=== PATIENT | male | born 1985 | race Caucasian/White ===

== ENCOUNTER 2023-11-11 11:51 | Inpatient (IN) ==
--- NOTE | 2023-11-11 12:29 | Emergency Department Note ---
Impression & Plan Anxiety, Alcohol abuse, Alcohol withdrawal ED Provider Note ED Provider Note NAME: GENO AUSTIN AGE:38 SEX: Male : 1985 ARRIVES VIA: private vehicle INFORMANT: Patient ED PROVIDER(s): Lisa Arriola DO CHIEF COMPLAINT: Mental health evaluation HPI: This is a 38-year-old male presents emergency department for mental health evaluation. Patient admits to history of anxiety for which he is medicated and does follow with a therapist although he is currently between therapist and starts with a new one on Thursday. No recent change in medications. Patient states in the last 2 to 3 weeks since the holidays which she felt were stressful he has been using alcohol daily. He estimates 750 mL to 1 L of wine daily. He denies drinking to the point of blacking out, denies any injuries while intoxicated, denies any withdrawal symptoms. He states he does have a prior history of alcohol abuse. He denies any recent substance abuse. PAST MEDICAL HISTORY:See Below PAST SURGICAL HISTORY:See Below FAMILY HISTORY:See Below SOCIAL HISTORY:See Below HOME MEDICATIONS:See Below ALLERGIES:See Below VITALS:See Below PHYSICAL EXAMINATION: GENERAL: alert, well appearing, well nourished, no distress, non-toxic EYE EXAM: normal conjunctiva, PERRL and EOM's grossly intact OROPHARYNX: no exudate, no erythema, lips, buccal mucosa, and tongue normal and mucous membranes are moist NECK: supple, no nuchal rigidity, no adenopathy, non-tender LUNGS: Clear to auscultation. Normal chest wall mechanics, no w/r/r HEART: no murmurs, S1 normal and S2 normal ABDOMEN: abdomen soft, non-tender, normo-active bowel sounds, no masses, no rebound or guarding. BACK: Back is symmetrical on inspection and there is no deformity, no midline tenderness, no CVA tenderness. SKIN: no rashes, petechiae, orbruising UPPER EXTREMITIES: upper extremities are grossly normal. FROM, nml pulses b/l. LOWER EXTREMITIES: No pitting edema. FROM, nml pulses b/l. NEURO EXAM: Normal sensorium, cranial nerves II-XII grossly intact, normal speech, no facial droop,nogross weakness of arms, no gross weakness of legs. Gross sensation intact. No ataxia. Vital Signs: reviewed and remarkable Differential Diagnosis: mood disorder, suicidal ideation, anxiety, depression, substance abuse, toxidrome, infection, hypoglycemia, electrolyte abnormalities, ICH as well as others were considered. MEDICAL DECISION MAKING: This is a 38 yo male who presents with increased anxiety and alcohol abuse. VS stable. Protocol labs and imaging obtained and were reassuring. Patient found to have significant etoh elevation despite clinical appearance of sobriety. He was monitored and once sober was evaluated by case mgmt. He was in agreement with inpatient mental health treatment however due to concern for acutely evolving etoh withdrawal, case managers recommended medical admission and psych consult. Patient began having diaphoresis, slight tremors, and reporting nausea. He was tolerating po. IV established, EKG performed and interpreted by me, and he was started on IV banana bag and given IV valium. Case discussed with hospitalist for additional evaluation and mgmt. Consultation(s): 2039: Discussed with Dr. Dejesus, [place] hospitalist, for additional evaluation and medical mgmt and patient unable to be placed directly into mental health facility per case managers due to concern for evolving etoh withdrawal symptoms and hx of alcohol withdrawal related seizure. ER Treatment Provided: See below Diagnostics Interpreted By Me: -ECG: NSR at 97, nml axis, nml intervals, no acute ST/T wave changes -Cardiac Monitoring: An order was placed for continuous cardiac monitoring. The monitor shows a rate of 109 with sinus tachycardia rhythm. -Laboratory studies: As stated above and show below. -Imaging studies: [] Triage Nursing Note Reviewed Prior/Outside Records Reviewed Past Med/Surg History Social History Smoking Status: Current some day smoker Tobacco Type: E-cigarettes / Vaping Second Hand Exposure: No; Do You Dip or Chew Tobacco: No; Tobacco Cessation Education Requested by Patient: No Hx Alcohol Use: Yes Alcohol type: wine Hx Substance Use: Yes Last Used Substance: Unknown Substance Use Type Other:: occasional Preferred Language: Swedish Communication Ability: Effective Residential Sales Executive Required: No Beliefs That Will Affect Care: None Current Living Situation: Significant Other Feels Safe at Home: Yes Safety Concerns: Feels Safe At This Time Gender Identity: Male Assistive Devices Comment: reading glasses sometimes Allergies Allergies Allergy/AdvReac Type Severity Reaction Status Date / Time Sulfa (Sulfonamide Allergy Mild Rash Verified 11/11/23 12:52 Antibiotics) Home Meds Home Medications Medication Instructions Recorded Confirmed duloxetine 30 mg PO QAM 11/11/23 11/11/23 hydroxyzine pamoate 50 mg PO QPM 11/11/23 11/11/23 prazosin 2 mg PO QPM 11/11/23 11/11/23 propranolol 10 mg PO BID PRN Anxiety 11/11/23 11/11/23 Results & Data (ED) Vital Signs Vital Signs - 24 hr 11/11/23 12:00 11/11/23 13:26 11/11/23 17:55 Temperature 36.3 C L 37.1 C Temperature Source Temporal Artery Scan Oral Pulse Rate 124 H Pulse Rate [Apical] 101 H 98 H Respiratory Rate 18 17 18 Respiratory Effort / Characteristics Non-Labored Respiratory Depth Normal Respiratory Pattern Blood Pressure 122/79 Blood Pressure [Right Arm] 116/81 131/92 Blood Pressure Mean 93 Blood Pressure Mean [Right Arm] 92 105 Pulse Oximetry 99 97 96 Oxygen Delivery Method Room Air Room Air Room Air Sepsis New/Unexplained Change in Mental Status No Sepsis Action Taken by Nursing No Action Required 11/11/23 19:56 11/11/23 21:06 Temperature 36.8 C Temperature Source Oral Pulse Rate Pulse Rate [Apical] 97 H 91 H Respiratory Rate 22 16 Respiratory Effort / Characteristics Non-Labored Spontaneous Non-Labored Spontaneous Respiratory Depth Normal Normal Respiratory Pattern Regular Regular Blood Pressure Blood Pressure [Right Arm] 134/100 132/86 Blood Pressure Mean Blood Pressure Mean [Right Arm] 111 101 Pulse Oximetry 97 96 Oxygen Delivery Method Room Air Sepsis New/Unexplained Change in Mental Status Sepsis Action Taken by Nursing Laboratory Data 11/12/23 07:54 11/12/23 07:54 Lab Results 11/11/23 Range/Units 12:20 WBC 5.64 (4.8-10.8) K/ul RBC 5.05 (4.70-6.10) M/uL Hgb 16.9 (14.0-18.0) g/dl Hct 47.6 (42.0-52.0) % MCV 94.3 (80.0-100.0) fL MCH 33.5 (25.0-34.0) pg MCHC 35.5 (32.0-36.0) g/dL RDW Std Deviation 42.7 (36.4-46.3) fL RDW Coeff of [place] 12.4 (11.5-14.5) % Plt Count 285 (130-400) K/uL MPV 9.7 (9.4-12.4) fL Immature Gran % (Auto) 0.4 % Neut % (Auto) 65.8 % Lymph % (Auto) 22.3 % [place] % (Auto) 9.4 % Eos % (Auto) 0.5 % Baso % (Auto) 1.6 % Neut # (Auto) 3.71 (1.40-6.50) K/uL Lymph # (Auto) 1.26 (1.20-3.40) K/uL [place] # (Auto) 0.53 (0.11-0.59) K/uL Eos # (Auto) 0.03 (0.00-0.50) K/uL Baso # (Auto) 0.09 (0.00-0.20) K/uL Immature Gran # (Auto) 0.02 (0.01-0.20) K/uL Sodium 140 (136-145) mmol/L Potassium 3.8 (3.5-5.1) mmol/L Chloride 100 (98-107) mmol/L Carbon Dioxide 30 (21-32) mmol/L Anion Gap 10 (3-11) BUN 9 (6-23) mg/dl Creatinine 0.88 (0.6-1.4) mg/dl Est Cr Clr Drug Dosing 105.4 ml/min Est GFR ( Amer) 125.4 ml/min Est GFR (Non-Af Amer) 108.2 ml/min BUN/Creatinine Ratio 10.2 (10-20) Glucose 146 H (70-99(Fasting)) mg/dl Calcium 9.1 (8.6-10.3) mg/dl Magnesium 2.0 (1.7-2.4) mg/dl Total Bilirubin 0.6 (0.2-1.0) mg/dl AST 41 H (13-39) U/L ALT 30 (7-52) U/L Alkaline Phosphatase 113 H (34-104) U/L Total Protein 8.7 H (6.0-8.3) gm/dl Albumin 4.9 (3.4-5.0) gm/dl Globulin 3.8 (2.5-4.0) gm/dl Albumin/Globulin Ratio 1.3 (0.9-2) TSH 2.876 (0.300-4.500) uIu/ml Urine Color Yellow Urine Appearance Clear (Clear) Urine pH 5.5 (4.5-7.5) Ur Specific [place] 1.013 (1.000-1.030) Urine Protein Negative (Negative) Urine Glucose (UA) Negative (Negative) Urine Ketones Trace H (Negative) Urine Blood Negative (Negative) Urine Nitrite Negative (Negative) Urine Bilirubin Negative (Negative) Urine Urobilinogen Negative (Negative) Ur Leukocyte Esterase Negative (Negative) Salicylates < 3.0 L (3.0-30) mg/dl Urine Opiates Screen Neg (Neg) Ur Methadone, Qual Neg (Neg) Acetaminophen < 3 L (10-30) ug/ml Urine Barbiturates Neg (Neg) Ur Phencyclidine (PCP) Neg (Neg) U Amphetamin/Meth Scrn Neg (Neg) MDMA (Ecstasy) Screen Neg (Neg) U Benzodiazepines Scrn Neg (Neg) Ur Cocaine Metabolite Neg (Neg) U Marijuana (THC) Screen Neg (Neg) Ethyl Alcohol mg/dL 241.4 H (<10.0) mg/dl Administered Medications Duloxetine HCl (Duloxetine Hcl 30 Mg Cap) 30 mg PO [facility] Stop: 12/12/23 08:59 Last Admin: 11/12/23 09:03 Dose: 30 mg Documented By: BERENICE Folic Acid (Folic Acid 1 Mg Tab) [facility] [place] Stop: 12/12/23 08:59 Last Admin: 11/12/23 09:03 Dose: 1 mg Documented By: BERENICE Lorazepam 1 mg/ Syringe 1 mls @ 2 mls/min IV UD PRN; Protocol PRN Reason: EtOH Withdrawal AWSS Score 6,7 Stop: 12/11/23 21:37 Last Admin: 11/12/23 11:26 Dose: 2 mls/min Documented By: MARYANN Multivitamins (Multivitamin Tab) 1 tab PO [facility] Stop: 12/12/23 08:59 Last Admin: 11/12/23 09:00 Dose: 1 tab Documented By: BERENICE Propranolol HCl (Propranolol Hcl 10 Mg Tab) 10 mg PO BID [facility] Stop: 12/12/23 08:59 Last Admin: 11/12/23 09:00 Dose: 10 mg Documented By: BERENICE Thiamine HCl (Thiamine Hcl 100 Mg Tab) 200 mg PO BID [facility] Stop: 12/12/23 08:59 Last Admin: 11/12/23 09:03 Dose: 200 mg Documented By: BERENICE Discontinued Medications Diazepam (Diazepam 5 Mg/Ml 10ml Vial) 5 mg IV NOW STA Stop: 11/11/23 20:26 Last Admin: 11/11/23 20:57 Dose: 5 mg Documented By: MED Multivitamins 10 ml/ Thiamine HCl 100 mg/ Folic Acid 1 mg/Sodium Chloride 1,011.2 mls @ 250 mls/hr IV .Q4H3M ONE Stop: 11/12/23 00:27 Last Infusion: 11/12/23 01:46 Dose: Infused Documented By: Admin: 11/11/23 21:34 Dose: 250 mls/hr Documented By: AAW Discharge Plan Visit Data Chief Complaint: Mental Health Evaluation Stated Complaint: MENTAL HEALTH ED Provider: Lisa Arriola Discharge Problem: Anxiety, Alcohol abuse, Alcohol withdrawal Patient Disposition: Being Evaluated by Hospitalist Discharge Instructions Interventions: ED Discharge Assessment Last Done: 11/11/23 23:46
[2023-11-11 12:56] LABS: Basophils # (auto) 0.09 K/uL (0.00-0.20); Basophils % (auto) 1.6 %; Eosinophils # (auto) 0.03 K/uL (0.00-0.50); Eosinophils % (auto) 0.5 %; Hematocrit (blood only) 47.6 % (42.0-52.0); Hemoglobin 16.9 g/dl (14.0-18.0); Immature Granulocytes # (auto) 0.02 K/uL (0.01-0.20); Immature Granulocytes % (auto) 0.4 %; Lymphocytes # (auto) 1.26 K/uL (1.20-3.40); Lymphocytes % (auto) 22.3 %; Mean Corpuscular Hemoglobin 33.5 pg (25.0-34.0); Mean Corpuscular Hgb Conc 35.5 g/dL (32.0-36.0); Mean Corpuscular Volume 94.3 fL (80.0-100.0); Mean Platelet Volume 9.7 fL (9.4-12.4); Monocytes # (auto) 0.53 K/uL (0.11-0.59); Monocytes % (auto) 9.4 %; Neutrophils # (auto) 3.71 K/uL (1.40-6.50); Neutrophils % (auto) 65.8 %; Platelet Count 285 K/uL (130-400); RDW Coefficient of Variation 12.4 % (11.5-14.5); RDW Standard Deviation 42.7 fL (36.4-46.3); Red Blood Count 5.05 M/uL (4.70-6.10); White Blood Count 5.64 K/ul (4.8-10.8)
[2023-11-11 13:04] LABS: Amphetamines+Metham, Urine Neg (Neg); Appearance Urine Clear (Clear); Barbiturates, Urine Neg (Neg); Benzodiazepine, Urine Neg (Neg); Bilirubin Urine Negative (Negative); Blood Urine Negative (Negative); Cocaine, Urine Neg (Neg); Color Urine Yellow; Glucose Urine UA Negative (Negative); Ketones Urine Trace (Negative); Leukocyte Esterase Urine Negative (Negative); MDMA (Ecstacy), Urine Neg (Neg); Marijuana, Urine Neg (Neg); Methadone, Urine Neg (Neg); Nitrite Urine Negative (Negative); Opiate, Urine Neg (Neg); Phencyclidine, Urine Neg (Neg); Protein Urine Negative (Negative); Specific Gravity Urine 1.013 (1.000-1.030); Urobilinogen Urine Negative (Negative); pH Urine 5.5 (4.5-7.5)
[2023-11-11 13:14] LABS: Albumin Globulin Ratio 1.3 (0.9-2); Albumin Level 4.9 gm/dl (3.4-5.0); BUN Creatinine Ratio 10.2 (10-20); Bilirubin,Total 0.6 mg/dl (0.2-1.0); Calcium 9.1 mg/dl (8.6-10.3); Creatinine Clr Calc Pharmacy 105.4 ml/min; Est GFR (African American) 125.4 ml/min; Est GFR (Non-African American) 108.2 ml/min; Globulin 3.8 gm/dl (2.5-4.0); Potassium 3.8 mmol/L (3.5-5.1); Total Protein 8.7 gm/dl (6.0-8.3)
[2023-11-11 13:16] LABS: Acetaminophen < 3 ug/ml (10-30); Salicylate < 3.0 mg/dl (3.0-30)
[2023-11-11 13:26] LABS: Thyroid Stimulating Hormone 2.876 uIu/ml (0.300-4.500)
[2023-11-11] MEDS ORDERED: diazePAM 5 MG/ML 10ML VIAL IV STA (20:25)
[2023-11-11] MEDS ORDERED: MULTI-VITAMIN INFUSION 10 ML, THIAMINE HCL 100 MG, FOLIC ACID 1 MG in SODIUM CHLORIDE 0... IV ONE (20:25)
--- NOTE | 2023-11-11 20:51 | History & Physical Report ---
Date of Service November 11, 2023 Assessment & Plan (1) Alcohol abuse: Plan: Pt is a 38 yo male with PMH of anxiety, depression, PTSD, and excessive alcohol use presenting to the ER due to mental health concerns and recent increase in his alcohol consumption. Alcohol withdrawal - s/p valium 5 mg with improvement in his tremulousness - lab work stable, vitals stable with some mild tachycardia - pt has been on naltrexone in the past; would benefit from further discussion about medical tx for alcohol abuse - AWSS protocol, folate and thiamine daily - repeat CBC, CMP in AM Anxiety/depression/PTSD - continue home regimen: duloxetine 30 mg daily, hydroxyzine 50 mg PRN, propranolol 10 mg BID PRN, and prazosin 2 mg qHS - pt with passive SI (no plan, no intention) in addition to complex mental health hx; psych consulted- pt and pt's girlfriend interested in inpatient psych tx Diet: regular, safe tray VTE ppx: low risk Code: full Dispo: admit to med/tele (2) Anxiety: History of Present Illness Chief Complaint: mental health eval, alcohol withdrawal Primary Care Provider: NO PCP Pt is a 38 yo male with PMH of anxiety, depression, PTSD, and excessive alcohol use presenting to the ER due to mental health concerns. He is here with his girlfriend. Pt explains that he has struggled with depression since he was a child. He also has a hx of anxiety, PTSD, and alcohol abuse (for at least the last 10 yrs). He notes he has been seeing a psychiatrist for his mental health problems and has been on medications for the past year. He is currently on duloxetine 30 mg daily, hydroxyzine 25-50mg PRN for sleep/anxiety, propranolol 10 mg BID PRN for anxiety, and prazosin 2 mg qPM for nightmares. He notes over the past few weeks his drinking has increased exponentially. He reports drinking 750-1000mL of white wine daily. He denies other substance use. He has also been expressing feelings of hopelessness and being better of to his girlfriend. No hx of suicide attempts. She is extremely concerned that he is downplaying his suicidal thoughts and his drinking as he has lied to her about the amount of his drinking in the past. She is wanting inpatient psych tx for him for which he is also agreeable to. Pt also notes he believes he has a hx of delayed sleep phase cycle. He typically sleeps from ~3AM to 11AM each night. His mental health is much better when he is allowed to sleep these hours rather than try to move his sleep time further up. This has also been a reason for him to drink in the past- to try to get him to sleep. He does note he was hospitalized once before for alcohol withdrawal. He had one seizure during that hospitalization. He has been on naltrexone in the past for alcohol abuse but this upset his stomach and did not work as well as he had hoped. In the ER, pt was hemodynamically stable. CBC WNL, BMP WNL, AST 41, ALT 30, urine tox neg, and EtOH of 241. No imaging performed. He received 5 mg of valium and a banana bag. Allergies Allergy/AdvReac Type Severity Reaction Status Date / Time Sulfa (Sulfonamide Allergy Mild Rash Verified 11/11/23 12:52 Antibiotics) Home Medications Medication Instructions Recorded Confirmed Type duloxetine 30 mg PO QAM 11/11/23 11/11/23 History hydroxyzine pamoate 50 mg PO QPM 11/11/23 11/11/23 History prazosin 2 mg PO QPM 11/11/23 11/11/23 History propranolol 10 mg PO BID PRN Anxiety 11/11/23 11/11/23 History Past Med/Surg History Social History Smoking Status: Former smoker Preferred Language: German Feels Safe at Home: Yes Gender Identity: Male Review of Systems Review of Systems: As per HPI Physical Exam Physical Exam: Constitutional: well appearing, minimal distress with upper extremity tremors HEENT: normocephalic, no conjunctival injection CV: regular rhythm, tachycardic, no murmur Respiratory: CTA bilaterally. No rhonchi, wheezes, or crackles. No increased work of breathing GI: soft, nondistended, nontender, + bowel sounds MSK: no gross deformities noted Skin: warm, dry, no rashes Neuro: alert, oriented, no FND noted Psych: mood and affect congruent Results & Data Results & Data Vital Signs (Past 12 Hours) Vital Signs Temp Pulse Pulse Resp BP BP Pulse Ox 11/11/23 19:56 36.8 C 97 H 22 134/100 97 11/11/23 17:55 37.1 C 98 H 18 131/92 96 11/11/23 13:26 101 H 17 116/81 97 11/11/23 12:00 36.3 C L 124 H 18 122/79 99 O2 Del Method 11/11/23 19:56 Room Air 11/11/23 17:55 Room Air 11/11/23 13:26 Room Air 11/11/23 12:00 Room Air Supervising Physician Co-Signing Physician Notes Patient seen and examined, chart reviewed, case discussed with Dr. Phan and I agree wtih the assessment and plan as above. In brief, patient is a 38yo male with history of anxiety/depression/PTSD and EtOH use presenting with mental health concerns. He is requesting inpatient psychiatric admission. Has had increased EtOH intake over the last several weeks - most recentyl drinking 750mL - 1000mL daily. Last drink was this AM 11/11/23 around 02:00. Does have a history of EtOH withdrawal seizure in 2021. On exam patient is resting comfortably, NAD Skin - intact, no rash HEENT - MMM, neck supple Heart - +S1/S2, regular, tachycardic Lungs - CTA Abd - +BS, soft, NT/ND Ext - warm, well perfused Labs and images reviewed Assessment/Plan Concern for developing EtOH withdrawal. He has been given Valium 5mg IV with improvement in symptoms Continue IV Ativan PRN by AWSS Continue home medications - duloxetine, Hydroxyzine, Propranolol and Prazosin Remainder as above Resident Activity Tracking Resident Involvement: Resident Care Provided Care Provided: Adult Hospital Medicine
[2023-11-11] MEDS ORDERED: ONDANSETRON INJ 2 MG/ML 2 ML VIAL IV PRN (21:35)
[2023-11-11] MEDS ORDERED: MELATONIN 3 MG TAB PO PRN (21:35)
[2023-11-11] MEDS ORDERED: ACETAMINOPHEN 325 MG TAB PO PRN (21:35)
[2023-11-11] MEDS ORDERED: Ativan IV Alcohol Withdrawal--Active Protocol IV PRN (21:38)
[2023-11-11] MEDS ORDERED: LORazepam 3 MG in SYRINGE 1.5 ML IV PRN (21:38)
[2023-11-11] MEDS ORDERED: LORazepam 2 MG in SYRINGE 1 ML IV PRN (21:38)
--- NOTE | 2023-11-11 23:32 | Billing Data ---
Date of Service November 11, 2023 Coding Level of Care Code 66696 INT INP/OBS CARE
--- NOTE | 2023-11-12 07:53 | Hospitalist Progress Note ---
Date of Service November 12, 2023 Assessment & Plan (1) Alcohol abuse: Plan: Pt is a 38 yo male with PMH of anxiety, depression, PTSD, and excessive alcohol use presenting to the ER due to mental health concerns and recent increase in his alcohol consumption. Alcohol withdrawal - s/p valium 5 mg with improvement in his tremulousness - lab work stable, vitals stable with some mild tachycardia - AWSS protocol - 1-2 - folate and thiamine daily -Medically cleared Anxiety/depression/PTSD - continue home regimen: duloxetine 30 mg daily, hydroxyzine 50 mg PRN, propranolol 10 mg BID PRN, and prazosin 2 mg qHS - pt with passive SI (no plan, no intention) in addition to complex mental health hx; psych consulted- pt and pt's girlfriend interested in inpatient psych tx Diet: regular, safe tray VTE ppx: low risk Code: full Dispo: admit to med/tele (2) Anxiety: Admission and Anticipated Discharge Date Admission Date: November 11, 2023 Supervising Physician Co-Signing Physician Notes I personally examined the patient and verified all huggins points of history and exam, discussed case, and agree with decision making with Dr Jose Harmon No significant tremors, no significant tachycardia, no significant sweats. Extensive discussion on depression, as well as coping skills. Vitals noted, in general he is awake and alert pleasant no distress. HEENT normocephalic atraumatic mucous membranes moist. Breathing unlabored no accessory muscle use good effort. No tremors, no diaphoresis, no tachycardia. Alcohol abuse/risk for withdrawalfortunately appears to be doing quite well. Continue RAMON S symptom triggeredbut while there is still a very small potential for withdrawal to develop, it really does not appear it is going to happen this time, fortunately. Thiamine, folate. Work on treating depression, given that this appears to be the underlying reason he drinks. Depression/PTSD/passive suicidalityawaiting psychiatry input. He/girlfriend would much prefer he have some degree of inpatient treatment. Otherwise as above. Subjective Pt is a 38 yo male with PMH of anxiety, depression, PTSD, and excessive alcohol use admitted to the hospital due to alcohol withdrawal and anxiety/ depression/passive SI Review of Systems Review of Systems: as per HPI Physical Exam Constitutional: WD/WN, vitals as above Respiratory: normal respiratory effort, lungs clear to auscultation Cardiovascular: RRR, no murmur, no edema Gastrointestinal (Abdomen): normal bowel sounds, soft, nontender, no hepatosplenomegaly Results & Data Results & Data Vital Signs (Past 12 Hours) Vital Signs Temp Pulse Pulse Resp BP BP Pulse Ox 11/12/23 07:01 76 11/12/23 06:32 11/12/23 05:00 37.1 C 89 16 118/74 93 11/12/23 03:00 85 17 129/90 97 11/12/23 01:00 99 H 16 119/83 94 11/12/23 00:00 97 H 21 112/82 94 11/12/23 00:00 101 H 11/11/23 23:30 108 H 16 135/90 94 11/11/23 23:30 99 H 18 135/90 95 11/11/23 23:00 97 H 26 H 137/89 94 11/11/23 21:50 99 H 19 140/93 95 11/11/23 21:06 91 H 16 132/86 96 11/11/23 19:56 36.8 C 97 H 22 134/100 97 O2 Del Method 11/12/23 07:01 11/12/23 06:32 Room Air 11/12/23 05:00 Room Air 11/12/23 03:00 Room Air 11/12/23 01:00 Room Air 11/12/23 00:00 11/12/23 00:00 11/11/23 23:30 11/11/23 23:30 Room Air 11/11/23 23:00 11/11/23 21:50 Room Air 11/11/23 21:06 11/11/23 19:56 Room Air Resident Activity Tracking Resident Involvement: Resident Care Provided Care Provided: Adult Hospital Medicine
[2023-11-12 08:12] LABS: Red Blood Count 4.36 M/uL (4.70-6.10); White Blood Count 6.58 K/ul (4.8-10.8)
[2023-11-12 08:13] LABS: Hematocrit (blood only) 41.4 % (42.0-52.0); Hemoglobin 14.7 g/dl (14.0-18.0); Mean Corpuscular Hemoglobin 33.7 pg (25.0-34.0); Mean Corpuscular Hgb Conc 35.5 g/dL (32.0-36.0); Mean Platelet Volume 9.8 fL (9.4-12.4); Platelet Count 199 K/uL (130-400); RDW Coefficient of Variation 12.1 % (11.5-14.5); RDW Standard Deviation 42.1 fL (36.4-46.3)
[2023-11-12 08:38] LABS: Bilirubin,Total 1.1 mg/dl (0.2-1.0)
[2023-11-12 08:39] LABS: Albumin Globulin Ratio 1.3 (0.9-2); Albumin Level 3.9 gm/dl (3.4-5.0); BUN Creatinine Ratio 11.5 (10-20); Calcium 8.8 mg/dl (8.6-10.3); Creatinine Clr Calc Pharmacy 106.6 ml/min; Est GFR (Non-African American) 108.7 ml/min; Globulin 3.1 gm/dl (2.5-4.0); Phosphorus 3.6 mg/dl (2.5-4.9); Potassium 4.5 mmol/L (3.5-5.1)
[2023-11-12] MEDS ORDERED: THIAMINE HCL 100 MG TAB PO SCH (09:00)
[2023-11-12] MEDS ORDERED: PROPRANOLOL HCL 10 MG TAB PO SCH (09:00)
[2023-11-12] MEDS: MULTIVITAMIN TAB PO SCH (09:00)
[2023-11-12] MEDS: THIAMINE HCL 100 MG TAB PO SCH ×2 (09:03→21:07)
[2023-11-12] MEDS: FOLIC ACID 1 MG TAB PO SCH (09:03)
[2023-11-12] MEDS: DULoxetine HCL 30 MG CAP PO SCH (09:03)
[2023-11-12] MEDS: LORazepam 1 MG in SYRINGE 0.5 ML IV PRN ×3 (11:26→22:12)
[2023-11-12] MEDS ORDERED: hydrALAZINE TAB 50 MG TAB PO PRN (15:34)
[2023-11-12] MEDS ORDERED: hydrOXYzine HCl 25 MG TAB PO PRN (15:37)
[2023-11-12] MEDS ORDERED: hydrOXYzine HCl 25 MG TAB PO STA (15:37)
[2023-11-12] MEDS: NICOTINE 14 MG/24 HR PATCH TD SCH (16:04)
--- NOTE | 2023-11-12 17:10 | Communication Note ---
Date of Service: November 12, 2023 Consult received. Chart reviewed. Girlfriend reportedly requesting to coordinate with liaison for his history. Hospitalist service updated re: plan to complete formal consultation within next 24 hrs. as patient stabilizing/no agitation or active self-harm. Recommendation likely for dual dx inpatient care vs. directly to rehab based on acuity.
[2023-11-12] MEDS ORDERED: LORazepam 1 MG/1 ML SYR ED Inj Use ONE (17:23)
--- NOTE | 2023-11-12 18:17 | Billing Data ---
Date of Service November 12, 2023 Coding Level of Care Code 48166 SUB INP/OBS CARE MIN
[2023-11-12] MEDS ORDERED: hydrOXYzine HCl 25 MG TAB PO SCH ×2 (21:00)
[2023-11-12] MEDS ORDERED: PRAZOSIN HCL 1 MG CAP PO SCH (21:00)
[2023-11-12] MEDS: PROPRANOLOL HCL 20 MG TAB PO SCH (21:15)
[2023-11-13 03:52] LABS: Hematocrit (blood only) 40.2 % (42.0-52.0); Mean Corpuscular Hemoglobin 33.7 pg (25.0-34.0); Mean Corpuscular Hgb Conc 34.8 g/dL (32.0-36.0); Mean Corpuscular Volume 96.9 fL (80.0-100.0); Platelet Count 173 K/uL (130-400); RDW Standard Deviation 42.5 fL (36.4-46.3); Red Blood Count 4.15 M/uL (4.70-6.10); White Blood Count 5.99 K/ul (4.8-10.8)
[2023-11-13 04:12] LABS: Albumin Globulin Ratio 1.4 (0.9-2); Bilirubin,Total 0.6 mg/dl (0.2-1.0); Calcium 8.8 mg/dl (8.6-10.3); Creatinine Clr Calc Pharmacy 100.8 ml/min; Est GFR (Non-African American) 104.4 ml/min; Globulin 2.8 gm/dl (2.5-4.0); Magnesium 2.1 mg/dl (1.7-2.4); Phosphorus 3.9 mg/dl (2.5-4.9); Potassium 4.1 mmol/L (3.5-5.1); Total Protein 6.8 gm/dl (6.0-8.3)
--- NOTE | 2023-11-13 05:04 | Emergency Department Note ---
ED Visit Note .
[2023-11-13] MEDS: DULoxetine HCL 30 MG CAP PO SCH (10:02)
[2023-11-13] MEDS: THIAMINE HCL 100 MG TAB PO SCH (10:02)
[2023-11-13] MEDS: PROPRANOLOL HCL 20 MG TAB PO SCH (10:02)
[2023-11-13] MEDS: MULTIVITAMIN TAB PO SCH (10:03)
[2023-11-13] MEDS: FOLIC ACID 1 MG TAB PO SCH (10:03)
[2023-11-13] MEDS: NICOTINE 14 MG/24 HR PATCH TD SCH (10:04)
--- NOTE | 2023-11-13 13:28 | Discharge Summary ---
Date of Service November 13, 2023 Admission HPI Per Admitting Provider Pt is a 38 yo male with PMH of anxiety, depression, PTSD, and excessive alcohol use presenting to the ER due to mental health concerns. He is here with his girlfriend. Pt explains that he has struggled with depression since he was a child. He also has a hx of anxiety, PTSD, and alcohol abuse (for at least the last 10 yrs). He notes he has been seeing a psychiatrist for his mental health problems and has been on medications for the past year. He is currently on duloxetine 30 mg daily, hydroxyzine 25-50mg PRN for sleep/anxiety, propranolol 10 mg BID PRN for anxiety, and prazosin 2 mg qPM for nightmares. He notes over the past few weeks his drinking has increased exponentially. He reports drinking 750-1000mL of white wine daily. He denies other substance use. He has also been expressing feelings of hopelessness and being better of to his girlfriend. No hx of suicide attempts. She is extremely concerned that he is downplaying his suicidal thoughts and his drinking as he has lied to her about the amount of his drinking in the past. She is wanting inpatient psych tx for him for which he is also agreeable to. Pt also notes he believes he has a hx of delayed sleep phase cycle. He typically sleeps from ~3AM to 11AM each night. His mental health is much better when he is allowed to sleep these hours rather than try to move his sleep time further up. This has also been a reason for him to drink in the past- to try to get him to sleep. He does note he was hospitalized once before for alcohol withdrawal. He had one seizure during that hospitalization. He has been on naltrexone in the past for alcohol abuse but this upset his stomach and did not work as well as he had hoped. In the ER, pt was hemodynamically stable. CBC WNL, BMP WNL, AST 41, ALT 30, urine tox neg, and EtOH of 241. No imaging performed. He received 5 mg of valium and a banana bag. Admission Exam Per Admitting Provider Constitutional: well appearing, minimal distress with upper extremity tremors HEENT: normocephalic, no conjunctival injection CV: regular rhythm, tachycardic, no murmur Respiratory: CTA bilaterally. No rhonchi, wheezes, or crackles. No increased work of breathing GI: soft, nondistended, nontender, + bowel sounds MSK: no gross deformities noted Skin: warm, dry, no rashes Neuro: alert, oriented, no FND noted Psych: mood and affect congruent Principal Diagnosis Alcohol abuse Alcohol withdrawal Discharge Exam Constitutional WD/WN, vitals as above Respiratory normal respiratory effort, lungs clear to auscultation Cardiovascular RRR, no murmur, no edema Gastrointestinal (Abdomen) normal bowel sounds, soft, nontender, no hepatosplenomegaly Discharge Data Allergies Allergy/AdvReac Type Severity Reaction Status Date / Time Sulfa (Sulfonamide Allergy Mild Rash Verified 11/11/23 12:52 Antibiotics) Consultations 11/11/23 21:35 Consult Psychiatry Routine Hospital Course (1) Alcohol abuse: Pt is a 38 yo male with PMH of anxiety, depression, PTSD, and excessive alcohol use presenting to the ER due to mental health concerns and recent increase in his alcohol consumption. Alcohol withdrawal - s/p valium 5 mg with improvement in his tremulousness - lab work stable, vitals stable, some mild tachycardia on admission - was on AWSS protocol scoring only: 1 - folate and thiamine daily -Medically cleared for inpatient psych Anxiety/depression/PTSD - continue home regimen: duloxetine 30 mg daily, hydroxyzine 50 mg PRN, propranolol 10 mg BID PRN, and prazosin 2 mg qHS - pt with passive SI (no plan, no intention) in addition to complex mental health hx; psych consulted-Pt will be admitted on the psych floor for further treatment (2) Anxiety: Total Time Total Time Spent Total Time Spent (In Minutes): <30 Discharge Plan Discharge Items Patient Disposition: Home - Self-Care Reason For Visit: ALCOHOL WITHDRAWAL Discharge Diagnosis: Alcohol withdrawal Activity: Resume your previous activity Non-emergency contact: Primary Care Provider Call non-emergency contact if: you have any medication questions, your symptoms worsen, your pain is unusual for you and you have a fever Follow-up/Referrals: PCP,NO [Primary Care Provider] - Diet: Regular Addtl Attending Provider Instructions: You will be discharge from medical stand point. Your blood work is already back to normal. Important to follow up with your primary care upon discharge. Continue your home medication as previous prescribe. Pending Studies at Discharge: No Stand-Alone Forms: My [facility] [employer], Smoking Cessation Medications and DC Order Prescriptions: Continued duloxetine 30 mg capsule 30 mg PO QAM prazosin 2 mg capsule 2 mg PO QPM propranolol 10 mg tablet 10 mg PO BID PRN (Reason: Anxiety) hydroxyzine pamoate 50 mg capsule 50 mg PO QPM Discharge Orders: Discharge Order (Routine); Ordered 11/13/23 Ordered By: Adam Harmon Admission Data Admit Date/Time: 11/11/23 21:35 Attending Provider: Rhys Aguilar Admit Provider: Meagan Phan Primary Care Provider: PCP,NO Other Providers: Irena Ladd; Aspen Correa; Steve Pappas; Ken Yun Other Interventions: Discharge Summary Assessment (RN) Last Done: 11/13/23 16:10 Supervising Physician Co-Signing Physician Notes I personally examined the patient and verified all huggins points of history and exam, discussed case, and agree with decision making with Dr Jose Harmon no new complaints or problems. for 3S inpatient psych bed today. Vitals noted, in general he is awake and alert pleasant no distress. HEENT normocephalic atraumatic mucous membranes moist. Breathing unlabored no accessory muscle use good effort. No tremors, no diaphoresis. Alcohol abuse/risk for withdrawalfortunately appears to be doing quite well. safe/stable for transfer to inpatient psych. continue thiamine and folate Depression/PTSD/passive suicidalityfor inpatient psych treatment Otherwise as above. Resident Activity Tracking Resident Involvement: Resident Care Provided Care Provided: Adult Hospital Medicine
--- NOTE | 2023-11-13 13:46 | Psychiatric Consultation ---
Date of Consultation November 13, 2023 Psych History Identifying Data 38 yo male from [place], admit medically for ETOH withdrawal. Patient is agreeable to inpatient psychiatric stabilization prior to transition to a rehab program. Discusses pros/cons of dual dx facility vs. 3S. Patient's preference would be here. Anticipate male bed later today, liaison to work with patient on 201. Admission H&P for psych will include full consult information. He did endorse a 3 on question 9 of the PHQ-9 with a total score of 19. Past Psychiatric History History of Previous Suicide Attempt: No Allergies Allergy/AdvReac Type Severity Reaction Status Date / Time Sulfa (Sulfonamide Allergy Mild Rash Verified 11/11/23 12:52 Antibiotics) Home Medications Medication Instructions Recorded Confirmed Type duloxetine 30 mg PO QAM 11/11/23 11/11/23 History hydroxyzine pamoate 50 mg PO QPM 11/11/23 11/11/23 History prazosin 2 mg PO QPM 11/11/23 11/11/23 History propranolol 10 mg PO BID PRN Anxiety 11/11/23 11/11/23 History Patient History Social History Smoking Status: Current some day smoker Tobacco Type: E-cigarettes / Vaping Second Hand Exposure: No; Do You Dip or Chew Tobacco: No; Tobacco Cessation Education Requested by Patient: No Hx Alcohol Use: Yes Alcohol type: wine Hx Substance Use: Yes Last Used Substance: Unknown Substance Use Type Other:: occasional Preferred Language: Haitian Communication Ability: Effective Certified Rehabilitation Counselor Required: No Beliefs That Will Affect Care: None Current Living Situation: Significant Other Feels Safe at Home: Yes Safety Concerns: Feels Safe At This Time Gender Identity: Male Assistive Devices: None Assistive Devices Comment: reading glasses sometimes Physical Exam Vital Signs (Past 24 Hours): Last Vital Signs Temp 36.7 C 11/13/23 10:09 Pulse 72 11/13/23 12:45 Resp 18 11/13/23 12:45 BP 134/96 11/13/23 12:45 Pulse Ox 96 11/13/23 12:45 O2 Del Method Room Air 11/13/23 12:45 Results & Data (PSY) Medications Administered Duloxetine HCl (Duloxetine Hcl 30 Mg Cap) 30 mg PO QAM LISA Stop: 12/12/23 08:59 Last Admin: 11/13/23 10:02 Dose: 30 mg Documented By: Admin: 11/12/23 09:03 Dose: 30 mg Documented By: BERENICE Folic Acid (Folic Acid 1 Mg Tab) 1 mg PO QAM [facility] Stop: 12/12/23 08:59 Last Admin: 11/13/23 10:03 Dose: 1 mg Documented By: Admin: 11/12/23 09:03 Dose: 1 mg Documented By: BERENICE Hydroxyzine HCl (Hydroxyzine Hcl 25 Mg Tab) 100 mg PO [facility] Stop: 12/12/23 20:59 Last Admin: 11/12/23 21:05 Dose: 100 mg Documented By: MICHELLE Lorazepam 1 mg/ Syringe 1 mls @ 2 mls/min IV UD PRN; Protocol PRN Reason: EtOH Withdrawal AWSS Score 6,7 Stop: 12/11/23 21:37 Last Admin: 11/12/23 22:12 Dose: 2 mls/min Documented By: Admin: 11/12/23 17:25 Dose: 2 mls/min Documented By: Admin: 11/12/23 11:26 Dose: 2 mls/min Documented By: MARYANN Miscellaneous (Remove Nicoderm Patch) 1 each N/A DAILY@0859 [facility] Stop: 12/13/23 08:58 Last Admin: 11/13/23 10:04 Dose: 1 each Documented By: CARYN Multivitamins (Multivitamin Tab) 1 tab PO QAM [facility] Stop: 12/12/23 08:59 Last Admin: 11/13/23 10:03 Dose: 1 tab Documented By: Admin: 11/12/23 09:00 Dose: 1 tab Documented By: BERENICE Nicotine (Nicotine 14 Mg/24 Hr Patch) 14 mg TD QAM [facility] Stop: 12/12/23 15:44 Last Admin: 11/13/23 10:04 Dose: 14 mg Documented By: Admin: 11/12/23 16:04 Dose: 14 mg Documented By: VIKTORIA Prazosin HCl (Prazosin Hcl 1 Mg Cap) 2 mg PO [facility] Stop: 12/12/23 20:59 Last Admin: 11/12/23 21:06 Dose: 2 mg Documented By: MICHELLE Propranolol HCl (Propranolol Hcl 20 Mg Tab) 20 mg PO BID [facility] Stop: 12/12/23 20:59 Last Admin: 11/13/23 10:02 Dose: 20 mg Documented By: Admin: 11/12/23 21:15 Dose: 20 mg Documented By: MICHELLE Thiamine HCl (Thiamine Hcl 100 Mg Tab) 200 mg PO BID LISA Stop: 12/12/23 08:59 Last Admin: 11/13/23 10:02 Dose: 200 mg Documented By: Admin: 11/12/23 21:07 Dose: 200 mg Documented By: Admin: 11/12/23 09:03 Dose: 200 mg Documented By: BERENICE Coding Level of Care Code None
--- NOTE | 2023-11-13 17:14 | Billing Data ---
Date of Service November 13, 2023 Coding Level of Care Code 51580 IN/OBS DISCH 30 MIN/LESS
--- NOTE | 2023-11-13 17:17 | Billing Data ---
Date of Service November 13, 2023 Coding Level of Care Code 75820 IN/OBS DISCH 30 MIN/LESS
--- NOTE | 2023-11-13 19:02 | Electrocardiogram Report ---
Test Reason : Blood Pressure : / mmHG Vent. Rate : 097 BPM Atrial Rate : 097 BPM P-R Int : 146 ms QRS Dur : 072 ms QT Int : 356 ms P-R-T Axes : 065 081 064 degrees QTc Int : 452 ms Normal sinus rhythm Normal ECG No previous ECGs available Confirmed by Cheikh Oconnell ([id number]) on 11/13/2023 7:02:03 PM Referred By: REFERRED SELF Confirmed By:Cheikh Oconnell
== END 2023-11-13 16:50 | DRG 897 ==
LOC: ED 11:51 → SUATTDRO 21:35 → EDINP 21:35

== ENCOUNTER 2023-11-13 14:09 | Inpatient (IN) ==
[2023-11-13] MEDS ORDERED: ALUMINUM/MAGNESIUM SUSP 30 ML UDC PO PRN (15:55)
[2023-11-13] MEDS ORDERED: BISMUTH SUBSALICYLATE LIQD 236 ML PO PRN (15:55)
[2023-11-13] MEDS ORDERED: MAGNESIUM HYDROXIDE SUSP 30 ML UDC PO PRN (15:55)
[2023-11-13] MEDS ORDERED: SODIUM CHLORIDE 0.65% NA SOLN 45 ML (OCEAN) PRN (15:55)
[2023-11-13] MEDS ORDERED: hydrOXYzine HCl 25 MG TAB PO PRN ×3 (15:55→17:51)
[2023-11-13] MEDS ORDERED: ACETAMINOPHEN 325 MG TAB PO PRN (15:55)
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
[2023-11-13] MEDS: NICOTINE POLACRILEX 2 MG GUM MT PRN (17:13)
[2023-11-13] MEDS: PRAZOSIN HCL 1 MG CAP PO SCH (20:41)
[2023-11-13] MEDS: hydrOXYzine HCl 25 MG TAB PO PRN (23:48)
[2023-11-14] MEDS ORDERED: DULoxetine HCL 30 MG CAP PO SCH (09:00)
[2023-11-14] MEDS: FOLIC ACID 1 MG TAB PO SCH (09:29)
[2023-11-14] MEDS: THIAMINE HCL 100 MG TAB PO SCH (09:29)
[2023-11-14] MEDS: NICOTINE 14 MG/24 HR PATCH TD SCH (09:29)
[2023-11-14] MEDS: NICOTINE POLACRILEX 2 MG GUM MT PRN (10:25)
[2023-11-14] MEDS: PROPRANOLOL HCL 10 MG TAB PO PRN ×2 (10:26→14:46)
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
[2023-11-14] MEDS: NALTREXONE HCL 50 MG TAB PO SCH (14:38)
[2023-11-14] MEDS: PRAZOSIN HCL 1 MG CAP PO SCH (21:02)
[2023-11-14] MEDS: hydrOXYzine HCl 25 MG TAB PO PRN (23:18)
[2023-11-15] MEDS ORDERED: DULoxetine HCL 20 MG CAP PO SCH (09:00)
[2023-11-15] MEDS: NICOTINE 14 MG/24 HR PATCH TD SCH (09:46)
[2023-11-15] MEDS: PROPRANOLOL HCL 10 MG TAB PO PRN (09:46)
[2023-11-15] MEDS: FOLIC ACID 1 MG TAB PO SCH (09:47)
[2023-11-15] MEDS: THIAMINE HCL 100 MG TAB PO SCH (09:47)
[2023-11-15] MEDS: NALTREXONE HCL 50 MG TAB PO SCH (09:47)
[2023-11-15] MEDS: NICOTINE POLACRILEX 2 MG GUM MT PRN (09:47)
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
== END 2023-11-15 14:25 | disposition home or self-care (01) | DRG 885 ==
LOC: 3S 16:51

== ENCOUNTER 2024-08-21 18:03 | Inpatient (IN) ==
--- OUTSIDE RECORDS SUMMARY | 2024-08-21 18:09 | External Medical Summary | Summary of Care ---
Author Name Unknown Organization [facility] Address [address] [place] [address] Phone [phone] Care Team Providers Care [place] Name Role Phone Unavailable Primary Care Provider Unavailabl e Reason for Visit * Reason Onset Date Comments Medication Administration 07/07/2024 Flu an d/or Pneumo Inj NEW PATIENT New sleep. Sleep s hours 5 am - 1pm. Night person per patient. Been that way all his life. * Evaluate & Treat - Unlimited Visits (Within 30 days (routine)) - Authorized Specialty Diagnoses / Procedures Referred By Victoria meneses Referred To Contact Sleep Medicine / Sleep Disorders Diagnoses Sleep disorder Nataly Pugh MD [address] [place] [address] Referral ID Status Reason Start Date Expiration Date Visits Requested Visits Authorized [id number] Authorized Specialty Services Required 04/08/2024 2 2 Encounter Details Date Type Department Care Team (Late Contact Info) Description 07/07/2024 2:30 PM EDT Office Visit Sleep Disorders [facility] [address] [place] [address] Tania Erwin CRNP [address] [facility] [address] Persistent sleep-wake schedule disorder, delayed phase type*; Need for prophylactic vaccination and inoculation against influenza Allergies Active Allergy Reactions Criticality Noted Date Comments Sulfa Antibiotics Rash 04/08/2024 documented as of this encounter (statuses as of 07/07/2024) Medications Medication Sig Dispensed Refills Start Date End Date Status DULoxetine HCl 40 MG Oral Capsule Delayed Release Sprinkle Take by mouth. Active naltrexone 25 mg OR Tablet Take 0.5 Tablets by mouth in the morning. Active Prazosin HCl 5 MG Oral Capsule (Minipress) Take 1 Capsule by mouth every night at bedtime. Rx Psychiatrist 04/08/2024 Active Propranolol HCl 10 MG Oral Tablet (Inderal) Take 1 Tablet by mouth 2 times a day as needed for Anxiety. Rx Psychiatrist 04/08/2024 Active hydrOXYzine Pamoate 50 MG Oral Capsule (Vistaril) 1 at night and in day as needed for anxiety-Rx Psychiatrist 04/08/2024 Active cloNIDine HCl 0.1 MG Oral Tablet (Catapres) 06/16/2024 Active documented as of this encounter (statuses as of 07/07/2024) Active Problems Problem Noted Date Diagnosed Date Depression with anxiety 04/08/2024 History of nightmares 04/08/2024 History of alcohol use disorder 04/08/2024 Marijuana use, episodic 04/08/2024 documented as of this encounter (statuses as of 07/07/2024) Immunizations Name Administration Dates Next Due Seasonal Influenza, Trivalent, (IIV3), PF, (Fluz one) 07/07/2024 documented as of this encounter Social History Tobacco Use Types Packs/Day Years Used Date Smoking Tobacco: Former Cigarettes Q uit: 2015 Passive Smoke Exposure: Never Smokeless Tobacco: Former Comments:Does not participat e in the practice Alcohol Use Standard Drinks/Week Comments Yes 0 (1 standard drink = 0.6 oz pure alcohol) h/o alcohol abuse on naltrexone Utilities Answer Date Recorded Do you have trouble paying y our heating, water, or electric bill? (Adult - for ages 18 years and over) Not on file 04/12/2024 Is your family able to pay t he heat, water, or electric bill? (Household - for ages 0-17 years) Not on file 04/12/2024 Does your family have access to good internet? (Household - for ages 0-17 years) Not on file 04/12/2024 Social Connections Answer Date Recorded How often do you feel lonely or isolated from those around you? (Adult - for ages 18 years and over) Not on file 04/12/2024 Sex and Gender Information Value Date Recorded Sex Assigned at Not on file Gender Identity Not on file Sexual Orientation Not on file Job Start Date Occupation Industry Not on file Not on file Not on file documented as of this encounter Last Filed Vital Signs Vital Sign Reading Time Taken Comments Blood Pressure 136/64 07/07/2024 2:19 PM EDT Pulse 89 07/07/2024 2:19 PM EDT Temperature 36.3 C (97.3 F) 07/07/2024 2:19 PM ED T Respiratory Rate 16 07/07/2024 2:19 PM EDT Oxygen Saturation 99% 07/07/2024 2:19 PM EDT Inhaled Oxygen Concentration - - Weight 76.7 kg (169 lb) 07/07/2024 2:19 PM EDT Height 170.2 cm (5' 7") 07/07/2024 2:19 PM EDT Body Mass Index 26.47 07/07/2024 2:19 PM EDT documented in this encounter Patient Instructions * Patient Instructions* Tania Erwin CRNP - 07/07/2024 3:51 PM EDT DSWPS: Keep a regular schedule 7 days a week. Avoid light exposure at night before bed. Consider use of "blue batsheva" glasses (<550 nm) 3 hours prior to bedtime. Limit sleep time to 8 hrs daily maintaining a strict wake up with bright light exposure on waking for 20 - 30 min. No naps outside of this schedule. documented in this encounter Progress Notes * Tania Erwin CRNP - 07/07/2024 2:[address] [facility] SLEEP MEDICINE CONSULTATION Mr. Robert Lincoln is a 38 year old male with history of depression, anxiety, alcohol abuse disorder, nightmares seen at the request of Nataly Pugh MD for evaluation of possible sleep disorder. Reports difficulties with sleep since childhood. Generally sleeping 4a-12p or 3a-11a "which doesn't jive with society". He's working at the [employer] 4-8p, and one weekend a month he works starting at 10a on Thu and 12p on Thursday. This weekend schedule impacts him greatly, throwing off his previouis sleep schedule for about a week. He admits to having a fear of sleep and fear of being tired that is triggered by a wake up time that falls out of cycle with his sleep. Has attempted to shift his sleep times, unsuccessfully in the past. 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 Alcohol had previously been used to help with an earlier sleep onset. Review of sleep symptoms ("+" indicates reports, "-" indicates denies): (+) Snoring- mild, infrequent, positional (-) Witnessed apneas (-) Nocturnal choking or gasping (-) Nocturnal gastroesophageal reflux (-) Dry mouth on waking (-) Morning headaches (-) Non-restorative sleep (+) Daytime sleepiness or fatigue- notes fatigue only when his sleep schedule is altered (+) Symptoms of restless legs syndrome- on occasion, in bed, not bothersome, resolves easily with movement Parasomnias: (-) Somnambulism (+) Screaming- on occasion, associated with nightmare (+) Nightmares- managed by psychiatrist who believes he has PTSD, previously on prazosin which wasn't helpful, on clonidine for the past month, occurrence approx 3x/week (-) Dream enactment Bedroom environment: Lives alone in an apartment in [place]. Sleeps in a comfortable bed. Weighted blanket often used. Not comfortable on his back. Often sleepsprone or partly shifted to one side. Routine prior to bed: phone call to a friend around 10-11:30p for 1 hour, will eat, house chores, reads 30 minutes or listens to podcast Electronics: none in bed Clock checking: avoids Climate: cool to cold, wakes sweaty related to duloxetine Lighting: "pitch black", eye mask also worn Noise: fan, noise canceling headphone Sleep Schedule: Waits until he feels tired to get into bed. Hypnotics: clonidine within 15 minutes of thinking about going to bed, if he's unsure whether he istired enough he will take hydroxyzine, these are beneficial He's really good about getting out of bed if unable to sleep which helps him associate the bed withsleep only. In bed 2-5a may read in bed with red LED light Time to fall asleep 10-15 minutes Nighttime awakenings/ Reason none Wake after sleep onset - Awake Time/Alarm Perceived total sleep time Spontaneous 12-3p, out of bed within 10 minutes 8-8.5 hours Naps "I have never been able to nap" If he works at 10a or 12p on a weekend, he continues with his same bedtime schedule. He wakes by alarm feeling "angry and cranky all day." After work, he will be very tired, "too tired to sleep." He struggles with sleep onset and waking earlier than desired for another week. [place] Sleepiness Scale Question 07/06/2024 3:41 PM EDT - Filed by Patient What is the chance you will doze off in the following situation? Sitting and reading No chance of dozing Watching TV No chance of dozing Sitting inactive in a public place, such as a theater or meeting No chance of dozing As a passenger in a car for an hour without a break Moderate chance of dozing Lying down to rest in the afternoon when circumstances permit Slight chance of dozing When sitting and talking to someone No chance of dozing When sitting quietly after lunch without alcohol No chance of dozing In a car, while stopped for a few minutes in traffic No chance of dozing Score (range: 0 - 24) 3 Functional Outcomes Of Sleep Question 07/06/2024 5:19 PM EDT - Filed by Patient Please complete the following questions. Do you have difficulty concentrating because you are sleepy or tired? Yes, extreme Do you have difficulty remembering things because you are sleepy or tired? Yes, moderate Do you have difficulty operating a motor vehicle for short distances (less than 100 miles) because you become sleepy? Yes, a little Do you have difficulty operating a motor vehicle for long distances (more than 100 miles) because you become sleepy? Yes, a little Do you have difficulty visiting family or friends in their home because you become sleepy or tired?No Has your relationship with family, friends, or work colleagues been affected because you are sleepyor tired? Yes, extreme Do you have difficulty watching a movie or video because you become sleepy or tired? No Do you have difficulty being as active as you want to be in the evening because you are tired or sleepy? No Do you have difficulty being as active as you want to be in the morning because you are tired or sleepy? Yes, extreme Has your mood been affected because you are sleepy or tired? Yes, extreme Score (range: 10 - 40) 24 Medical History: Patient Active Problem List Diagnosis Depression with anxiety History of nightmares History of alcohol use disorder Marijuana use, episodic Personal history head injury with LOC - at least 3 times. No personal history of seizures; no nocturnal stereotypical movements. Surgical History: None Current Medications: Current Outpatient Medications Medication Sig Dispense Refill cloNIDine HCl 0.1 MG Oral Tablet (Catapres) DULoxetine HCl 40 MG Oral Capsule Delayed Release Sprinkle Take by mouth. hydrOXYzine Pamoate 50 MG Oral Capsule (Vistaril) 1 at night and in day as needed for anxiety-Rx Psychiatrist naltrexone 25 mg OR Tablet Take 0.5 Tablets by mouth in the morning. Propranolol HCl 10 MG Oral Tablet (Inderal) Take 1 Tablet by mouth 2 times a day as needed for Anxiety. Rx Psychiatrist Prazosin HCl 5 MG Oral Capsule (Minipress) Take 1 Capsule by mouth every night at bedtime. Rx Psychiatrist (Patient not taking: Reported on 07/07/2024) No current facility-administered medications for this visit. Social History: Caffeine: denies Alcohol use: Nicotine use: not recently Illicit drug use: denies smokes marijuana (medical) about 1 hour prior to bed about 4 nights a week with benefit Routine exercise: trying to walk more Family History: Denies family history of sleep related disorders. Review of Systems Constitutional: Positive for fatigue (if his sleep pattern is altered). Weight has gone up 10-15 lbs HENT: Intermittent with allergies Respiratory: Negative for shortness of breath. Cardiovascular: Negative for chest pain. Musculoskeletal: Negative for arthralgias, back pain and neck pain. Allergic/Immunologic: Positive for environmental allergies. Physical Exam: BP 136/64 | Pulse 89 | Temp 36.3 C (97.3 F) (Tympanic) | Resp 16 | Ht 1.702 m (5' 7") | Wt 76.7kg (169 lb) | SpO2 99% | BMI 26.47 kg/m | BSA 1.9 m Constitutional: No acute distress, accompanied by self Nose: Normal external appearance. Oral: dentition present, tongue appears normal, hard palate normal, no significant narrowing of oropharynx, uvula normal, Mallampati 2, tonsils are not enlarged Mandible: No obvious retrognathia Neck: Circumference 14 inches Chest: Normal respiratory effort at rest Cardiac: Regular rate and rhythm Neuro: Alert, oriented, fluent/clear speech Psych: Appropriate mood and affect. Impression/Recommendations: Persistent Delayed Sleep Wake Phase Syndrome, Circadian Rhythm Disorder Snoring, mild intermittent Restless leg syndrome With history of anxiety and depression Discussed DSWPS today. If he is left to his own sleep schedule, he wakes refreshed and denies fatigue. Suspicion for sleep disordered breathing is low, STOP-bang 2 (snoring, male) Discussed that having difficulties with sleep for so long has impacted his relationship with sleep.Referral for cognitive behavioral therapy relating to sleep may be beneficial (would recommend [facility] if interested). He notes not finding CBT to be helpful for him in the past. Recommended routine sleep-wake scheduling allowing for 8 hours of sleep Bright light exposures on waking and avoiding light exposure hours leading up to bedtime can be helpful with circadian rhythm disorders Letter provided for him to not start work before 3pm RLS symptoms are minimal and alleviate with movement, iron stores were assessed and wnl. Non pharmacological measures for RLS include warm baths, massage, light exercise, elevating extremities, compression stockings, or weighted blanket. Continue management of mood disorder and nightmares through Psychiatry Abstinence from alcohol encouraged due to impacts on sleep Encouraged regular exercise program as this has been helpful for sleep in the past Follow-up as needed. JAILENE Cortez Pulmonary & Sleep Medicine [facility] I spent a total of Greater than 55 mins (exact time 90 mins) on the date of service in preparation,delivery, and documentation of the care provided to Robert Lincoln excluding any time spent in the performance of separately billed services or time spent by another provider/QHP. * Maria Antonia Lima LPN - 07/07/2024 2:13 PM EDT PRE - ADMINISTRATION DOCUMENTATION Are you experiencing any cold symptoms or fever? No Have you had Guillain-Chamberino Syndrome (an illness that causes paralysis) within the last 6 weeks? No Have you had the flu shot in the past? YES Have you ever had a reaction to the flu shot? No Maria Antonia Wisor, DEMO SPECIALIST, 07/07/2024 2:13 PM Immunization Administration Documentation Time Out Procedure Performed: Yes Patient Identified (Ask Name/Date of ): Yes Does the patient have a fever greater than 101 degrees today? No Patient allergic to latex? No VFC Stock: No Immunization(s) verified: Yes, Immunization Name: Flu, VIS Sheet(s) given: Yes Verified Side and Site: Yes Verified Shot(s) with Parent(s)/Patient: Yes documented in this encounter Nursing Notes * Maria Antonia Lima LPN - 07/07/2024 2:22 PM EDT Chief Complaint Patient presents with Medication Administration Flu and/or Pneumo Inj NEW PATIENT New sleep. Sleeps hours 5 am - 1pm. Night person per patient. Been that way all his life. Neck: 14". [place] Sleepiness Scale Question 07/06/2024 3:41 PM EDT - Filed by Patient What is the chance you will doze off in the following situation? Sitting and reading No chance of dozing Watching TV No chance of dozing Sitting inactive in a public place, such as a theater or meeting No chance of dozing As a passenger in a car for an hour without a break Moderate chance of dozing Lying down to rest in the afternoon when circumstances permit Slight chance of dozing When sitting and talking to someone No chance of dozing When sitting quietly after lunch without alcohol No chance of dozing In a car, while stopped for a few minutes in traffic No chance of dozing Score (range: 0 - 24) 3 Functional Outcomes Of Sleep Question 07/06/2024 5:19 PM EDT - Filed by Patient Please complete the following questions. Do you have difficulty concentrating because you are sleepy or tired? Yes, extreme Do you have difficulty remembering things because you are sleepy or tired? Yes, moderate Do you have difficulty operating a motor vehicle for short distances (less than 100 miles) because you become sleepy? Yes, a little Do you have difficulty operating a motor vehicle for long distances (more than 100 miles) because you become sleepy? Yes, a little Do you have difficulty visiting family or friends in their home because you become sleepy or tired?No Has your relationship with family, friends, or work colleagues been affected because you are sleepyor tired? Yes, extreme Do you have difficulty watching a movie or video because you become sleepy or tired? No Do you have difficulty being as active as you want to be in the evening because you are tired or sleepy? No Do you have difficulty being as active as you want to be in the morning because you are tired or sleepy? Yes, extreme Has your mood been affected because you are sleepy or tired? Yes, extreme Score (range: 10 - 40) 24 Flu Vaccine Questionnaire Question 07/06/2024 5:19 PM EDT - Filed by Patient Get your flu shot at your upcoming appointment. Please select one of the options below. Yes, I would like my flu shot Travel Screening Question 07/07/2024 2:08 PM EDT - Filed by Patient Do you have any of the following new or worsening symptoms? None of these Have you recently been in contact with someone who was sick? No / Unsure documented in this encounter Plan of Treatment Upcoming Encounters Date Type Department Care Team (Late st Contact Info) Description 10/14/2024 1:20 PM EST Office [facility] [address] [place] [address] Nataly Pugh MD [address] [place] [address] Health Maintenance Due Date Last Done Comments Depression Monitoring 1996 HIV Screening 1999 Hepatitis C Screening 2002 Hepatitis B Vaccine (1 of 3 - 19+ 3-dose series) 2003 COVID-19 Vaccine (2023-2 5 season) 2024 11/25/2022 Diabetes Screening 04/14/2027 04/14/2024 DTap/Tdap Vaccines (2 - Td o r Tdap) 08/16/2032 08/16/2022 Influenza Vaccine (FLU shot) Completed 07/07/2024 HPV (Gardasil) Vaccine Aged Out No lo nger eligible based on patient's age to complete this topic MENINGOCOCCAL (MENACTRA/MENVEO) Aged Out No longer eligible based on patient's age to complete this topic Pneumococcal Vaccine: Pediat rics (0 to 5 Years) and At-Risk Patients (6 to 64 Years) Aged Out No longer eligi ble based on patient's age to complete this topic documented as of this encounter Medical Devices Not on filedocumented as of this encounter Visit Diagnoses Diagnosis Persistent sleep-wake schedule disorder, delayed phase type- Primary Need for prophylactic vaccination and inoculation against influenza documented in this encounter
--- OUTSIDE RECORDS SUMMARY | 2024-08-21 18:09 | External Medical Summary ---
Author Name Unknown Address Unknown Organization [id number]:[facility] [address] [place] [address] Laboratory Report Ordering Provider Test Date Status BRIANNA THOMAS 04/14/2024 13:41:10 Final Observation Date Value Abnormality Reference (Units ) Status LDL, (direct) 04/14/2024 13:41:10 84 <=129 (mg/dL) Final LDL Cholesterol Reference Ra nges (mg/dL):
<70 Target level for high risk ASCVD patient
<100 Optimal for general population
100-129 Near optimal for general population
130-159 Borderline high
160-189 High
>=190 Very high Performing Location [facility] [address] [place] [address]
--- OUTSIDE RECORDS SUMMARY | 2024-08-21 18:09 | External Medical Summary | Summary of Care ---
Author Name Unknown Organization [facility] Address [address] [place] [address] Phone [phone] Care Team Providers Care Stuffer Name Role Phone Unavailable Primary Care Provider [...] Diagnoses Sleep disorder Nataly Pugh MD [address] [place] [address] Referral ID Status Reason Start Date Expiration Date Visits Requested Visits Authorized [id number] Authorized Specialty Services Required 04/08/2024 2 2 Encounter Details Date Type Department Care Team (Late Contact Info) Description 07/07/2024 2:30 PM EDT Office Visit Sleep Disorders [facility]tr [facility] [address] [place] [address] [facility]win CR[facility] [address] [facility] [address] Persistent sleep-wake schedule disorder, delayed phase type*; Need for prophylactic vaccination and inoculation against influenza Allergies Active Allergy Reactions Criticality Noted Date Comments Sulfa Antibiotics Rash 04/08/2024 documented as of this encounter (statuses as of 08/18/2024) Medications Medication Sig Dispensed Refills Start Date [...] as of this encounter (statuses as of 08/18/2024) Active Problems Problem Noted Date Diagnosed Date Depression with anxiety 04/08/2024 History of nightmares 04/08/2024 History of alcohol use disorder 04/08/2024 Marijuana use, episodic 04/08/2024 documented as of this encounter (statuses as of 08/18/2024) Immunizations Name Administration Dates Next Due Seasonal [...] Erwin CRNP - 07/07/2024 2:29 PM EDT [facility] SLEEP MEDICINE CONSULTATION Mr. Rivas Lincoln is a 38 year old male with history of depression, anxiety, alcohol abuse disorder, nightmares seen at the request of Nataly Pugh MD for evaluation of possible sleep disorder. Reportsdifficulties with sleep since childhood. Generally sleeping 4a-12p or 3a-11a "which doesn't jive with society". He's working at the [employer] 4-8p, and one weekend a month he works starting at 10a on Thu and 12p on Thursday. This weekend schedule impacts him greatly, throwing off his previouis sleep schedule for about a week. He admits to having a fear of sleep and fear of being tired that is triggered by a wake up time that falls out of cycle with his sleep. [place] has attempted to shift his sleep times in the past, unsuccessfully. 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 He felt his best when he worked a job that started at 5p. Alcohol had previously been used to help [...] environment: Lives alone in an apartment in [place]. Sleeps in a comfortable bed. Weighted blanket [...] waking earlier than desired for another week. [place] Sleepiness Scale Question 07/06/2024 3:41 PM EDT [...] to sleep may be beneficial (would recommend [facility] if interested). He notes not finding CBT [...] needed. JAILENE Cortez Pulmonary & Sleep Medicine [facility] I spent a total of Greater than [...] symptoms or fever? No Have you had Guillain-Olivia Syndrome (an illness that causes paralysis) within the last 6 weeks? No Have you had the flu shot in the past? YES Have you ever had a reaction to the flu shot? No Maria Antonia Lima LPN, 07/07/2024 2:13 PM Immunization Administration Documentation Time [...] that way all his life. Neck: 14". [place] Sleepiness Scale Question 07/06/2024 3:41 PM EDT [...] PM EST Office Visit General Internal Medicine [facility] [address] [facility] [address] Nataly Pugh MD [address] [place] [address] Health Maintenance Due Date Last Done Comments Depression Monitoring 1996 HIV Screening 1999 Hepatitis C Screening 2002 Hepatitis B Vaccine (1 of 3 - 19+ 3-dose series) 2003 COVID-19 Vaccine ( - 2023-2 5 season) 2024 11/25/2022 Diabetes Screening 04/14/2027 [...]
--- OUTSIDE RECORDS SUMMARY | 2024-08-21 18:09 | External Medical Summary ---
Author Name Unknown Address Unknown Organization [id number]:[facility] [address] [place] [address] Laboratory Report Ordering Provider Test Date Status BRIANNA THOMAS 04/14/2024 13:41:10 Final Observation Date Value Abnormality Reference (Units ) Status Ferritin 04/14/2024 13:41:10 176 30-400 (ng /mL) Final Performing Location [facility] [address] [place] [address]
--- OUTSIDE RECORDS SUMMARY | 2024-08-21 18:09 | External Medical Summary | Summary of Care ---
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 Name Role Phone Unavailable Primary Care Provider Unavailabl e Encounter Details Date Type Department Care Team (Late st Contact Info) Description 04/12/2024 Orders Only PATIENT PORTAL DO NOT DELETE THIS DEPT USED BY [place] HANSEN [id number] Allergies Active Allergy Reactions Criticality Noted Date Comments Sulfa Antibiotics Rash 04/08/2024 documented as of this encounter (statuses as of 04/12/2024) Medications Medication Sig Dispensed Refills Start Date [...] as needed for anxiety-Rx Psychiatrist 04/08/2024 Active documented as of this encounter (statuses as of 04/12/2024) Active Problems Problem Noted Date Diagnosed Date Depression with anxiety 04/08/2024 History of nightmares 04/08/2024 History of alcohol use disorder 04/08/2024 Marijuana use, episodic 04/08/2024 documented as of this encounter (statuses as of 04/12/2024) Immunizations No known immunizationsdocumented as of this encounter Social History Tobacco Use Types Packs/Day Years Used Date Smoking Tobacco: Former Cigarettes Q uit: 2015 Passive Smoke Exposure: Never Smokeless Tobacco: Former Comments:Does not participat e in the practice Alcohol Use Standard Drinks/Week Comments Yes 0 (1 standard drink = 0.6 oz pure alcohol) h/o alcohol abuse on naltrexone Sex and Gender Information Value Date Recorded Sex Assigned at Not on file Gender Identity Not on file Sexual Orientation Not on file Job Start Date Occupation Industry Not on file Not on file Not on file documented as of this encounter Plan of Treatment Upcoming Encounters Date Type Department Care Team (Late st Contact Info) Description 07/07/2024 2:30 PM EDT [facility] [address] [place] [phone] Tania Erwin CRNP [address] [place] [address] 10/14/2024 1:20 PM EST Office Visit General Internal Medicine [facility] [place] 200 [facility] [place] [address] Nataly Pugh MD 200 [facility] [place] [address] Health Maintenance Due Date Last Done Comments Depression Monitoring 1996 HIV Screening 1999 Hepatitis C Screening 2002 Hepatitis B (1 of 3 - 19+ 3- dose series) 2003 COVID-19 Vaccine (2 - 2022-2 4 season) 2023 11/25/2022 Influenza Vaccine (FLU shot) (Season Ended) 2024 DTaP,Tdap,and Td Vaccines (2 - Td or Tdap) 08/16/2032 08/16/2022 GARDASIL-HPV IMMUNIZATION SERIES Aged Out No longer eligible based on [...]
--- OUTSIDE RECORDS SUMMARY | 2024-08-21 18:09 | External Medical Summary ---
Author Name Unknown Address Unknown Organization [id number]:[facility] [place] [address] Laboratory Report Ordering Provider Test Date Status BRIANNA THOMAS 04/14/2024 13:41:10 Final Observation Date Value Abnormality Reference (Units ) Status SYNC LEUKOCYTES IN BLOOD BY AUTOMATED COUNT 04/14/2024 13:41:10 5.56 4.00-10.80 (K/uL) Final Segs 04/14/2024 13:41:10 67.7 40.0-75.0 (%) Final Lymphs % 04/14/2024 13:41:10 18.9 18.0-42.0 (%) Final Monos 04/14/2024 13:41:10 10.4 1.0-11.0 (%) Final Eosinophils 04/14/2024 13:41:10 1.6 0.0-6.0 (%) Final Basos 04/14/2024 13:41:10 1.4 0.0-2.0 (%) Final Absolute Segs 04/14/2024 13:41:10 3.76 1.80-7.70 (K/uL) Final Lymphs, absolute 04/14/2024 13:41:10 1.05 1.00-4.80 (K/ul) Final Monos, Abs 04/14/2024 13:41:10 0.58 0.00-1.10 (K/uL) Final Eos, Abs 04/14/2024 13:41:10 0.09 0.00-0.70 (K/uL) Final Basos, Abs 04/14/2024 13:41:10 0.08 0.00-0.20 (K/uL) Final Performing Location [facility] [place] [address]
--- OUTSIDE RECORDS SUMMARY | 2024-08-21 18:09 | External Medical Summary | Summary of Care ---
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 Name Role Phone Unavailable Primary Care Provider Unavailabl e Encounter Details Date Type Department Care Team (Late st Contact Info) Description 04/29/2024 Orders Only Laboratory [place] [facility] 200 [facility] [place] [phone] Nataly Pugh MD [address] [place] [address] Abnormal glucose*; Screening for diabetes mellitus Allergies Active Allergy Reactions Criticality Noted Date Comments Sulfa Antibiotics Rash 04/08/2024 documented as of this encounter (statuses as of 04/29/2024) Medications Medication Sig Dispensed Refills Start Date [...] as of this encounter (statuses as of 04/29/2024) Active Problems Problem Noted Date Diagnosed Date Depression with anxiety 04/08/2024 History of nightmares 04/08/2024 History of alcohol use disorder 04/08/2024 Marijuana use, episodic 04/08/2024 documented as of this encounter (statuses as of 04/29/2024) Immunizations No known immunizationsdocumented as of this [...] PM EDT Office Visit [facility] [place], [place] [address] [facility] [place] [phone] Tania Erwin CRNP 132 [facility] [place] [address] 10/14/2024 1:20 PM EST Office Visit General Internal Medicine [facility] [place] [address] [place] [address] Nataly Pugh MD [address] [facility] [place] [address] Scheduled Orders Name Type Priority Associated Diagnoses Orde r Schedule GLUCOSE, FASTING PLASMA Lab Routine Abnormal glucose Screening for diabetes mellitus Expected: 10/10/2024 (Approximate), Expires: 04/29/2025 Health Maintenance Due Date Last Done Comments Depression Monitoring 1996 HIV Screening 1999 Hepatitis C Screening 2002 Hepatitis B Vaccine (1 of 3 - 19+ 3-dose series) 2003 COVID-19 Vaccine (2 - 2022-2 4 season) 2023 11/25/2022 Influenza Vaccine (FLU shot) (#1) 2024 DTaP,Tdap,and Td Vaccines (2 - Td or Tdap) 08/16/2032 08/16/2022 HPV (Gardasil) Vaccine Aged Out No lo [...] as of this encounter Visit Diagnoses Diagnosis Abnormal glucose- Primary Other abnormal glucose Screening for diabetes mellitus documented in this encounter
--- OUTSIDE RECORDS SUMMARY | 2024-08-21 18:09 | External Medical Summary ---
Author Name Unknown Address Unknown Organization [id number]:[facility] [place] [address] [place] [address] Laboratory Report Ordering Provider Test Date Status BRIANNA THOMAS 04/14/2024 13:41:10 Final Observation Date Value Abnormality Reference (Units ) Status Triglyceride 04/14/2024 13:41:10 193 Above high normal <=174 (mg/dL) Final Triglyceride Reference Range s (mg/dL):
<150 Acceptable
150-174 Borderline high
175-499 High
>=500 Very high Cholesterol 04/14/2024 13:41:10 183 <200 (mg /dL) Final Total Cholesterol Reference Ranges (mg/dL):
<200 Desirable
200-239 Borderline high
>=240 High HDL 04/14/2024 13:41:10 76 >39 (mg/dL ) Final HDL Cholesterol Reference Ra nges (mg/dL):
>=60 High (Desirable)
<50 Low (Undesirable) For Females
<40 Low (Undesirable) For Males NON-HDL CHOLESTEROL 04/14/2024 13:41:10 107 <=159 (mg/dL) Final Non-HDL Cholesterol Referenc e Range (mg/dL):
<100 Target level for high risk ASCVD patient
<130 Optimal for general population
130-159 Near optimal for general population
160-189 Borderline High
190-219 High
>=220 Very High Performing Location [facility] - [address] [facility] [address]
--- OUTSIDE RECORDS SUMMARY | 2024-08-21 18:09 | External Medical Summary ---
Author Name Unknown Address Unknown Organization K09:[facility] [place] [address] Laboratory Report Ordering Provider Test Date Status BRIANNA THOMAS 04/14/2024 13:41:10 Final Observation Date Value Abnormality Reference (Units ) Status WBC, Total 04/14/2024 13:41:10 5.56 4.00-10.8 0 (K/uL) Final RBC 04/14/2024 13:41:10 4.44 4.50-5.25 (M/uL) Final Hemoglobin 04/14/2024 13:41:10 15.7 14.0-16.8 (g/dL) Final HCT 04/14/2024 13:41:10 43.7 40.0-48.4 (%) Final MCV 04/14/2024 13:41:10 98.4 82.0-99.5 (fL) Final MCH 04/14/2024 13:41:10 35.4 27.0-34.0 (pg) Final MCHC 04/14/2024 13:41:10 35.9 32.0-36.0 (g/dL) Final RDW 04/14/2024 13:41:10 13.0 11.5-15.5 (%) Final Platelets 04/14/2024 13:41:10 276 140-400 (K /uL) Final MPV 04/14/2024 13:41:10 9.9 6.6-11.1 ( fL) Final Performing Location [facility] [place] [address]
--- OUTSIDE RECORDS SUMMARY | 2024-08-21 18:09 | External Medical Summary | Summary of Care ---
Author Name Unknown Organization [facility] Address [address] [place] [address] Phone [phone] Care Team Providers Care Admission Discharge Rn Name Role Phone Unavailable Primary Care Provider Unavailabl e Reason for Visit * Reason Comments Outpatient Testing Encounter Details Date Type Department Care Team (Late st Contact Info) Description 04/14/2024 1:40 PM EDT Laboratory Laboratory [facility] [address] [place] [phone] [facility] [address] [place] [id number] Sleep disorder; History of alcohol use disorder; Lipid screening Allergies Active Allergy Reactions Criticality Noted Date Comments Sulfa Antibiotics Rash 04/08/2024 documented as of this encounter (statuses as of 04/14/2024) Medications Medication Sig Dispensed Refills Start Date [...] as of this encounter (statuses as of 04/14/2024) Active Problems Problem Noted Date Diagnosed Date Depression with anxiety 04/08/2024 History of nightmares 04/08/2024 History of alcohol use disorder 04/08/2024 Marijuana use, episodic 04/08/2024 documented as of this encounter (statuses as of 04/14/2024) Immunizations No known immunizationsdocumented as of this [...] PM EDT Office Visit [facility] [place] [address] [place] [phone] Tania Erwin CRNP [address] [place] [address] 10/14/2024 1:20 PM EST Office Visit General Internal Medicine [place] [facility] [place] [address] [place] [address] Nataly Pugh MD [address] [place] [address] [address] Pending Results Name Type Priority Associated Diagnoses Date /Time COMPREHENSIVE METABOLIC PANEL Lab Routine Sleep disorder History of alcohol use disorder 04/14/2024 1:41 PM EDT TSH WITH FREE T4 IF INDICATED Lab Routine Sleep disorder 04/14/2024 1:41 PM EDT LIPID PANEL WITH DIRECT LDL IF TG IS HIGH Lab Routine Lipid screening 04/14/2024 1:41 PM EDT FERRITIN Lab Routine Sleep disorder 04/14/2024 1:41 PM EDT IRON SCREEN, INCLUDING TIBC Lab Routine Sleep disorder 04/14/2024 1:41 PM EDT Health Maintenance Due Date Last Done Comments [...] Not on filedocumented as of this encounter Procedures Procedure Name Priority Date/Time Associated Diagnosis Comments DIFFERENTIAL, AUTOMATED Routine 04/14/2024 1:41 PM EDT Sleep disorder History of alcohol use disorder CBC Routine 04/14/2024 1:41 PM EDT Sleep disorder History of alcohol use disorder CBC Routine 04/14/2024 1:41 PM EDT Sleep disorder History of alcohol use disorder documented in this encounter Results * DIFFERENTIAL, AUTOMATED (04/14/2024 1:41 PM EDT) WBC 5.56 4.00 - 10.80 K/uL 04/14/2024 1:48 PM EDT [facility] 56-02 Neutrophils % 67.7 40.0 - 75.0 % 04/14/2024 1:48 PM EDT [facility] 56- Lymphocytes % 18.9 18.0 - 42.0 % 04/14/2024 1:48 PM EDT [facility] 56- Monocytes % 10.4 1.0 - 11.0 % 04/14/2024 1:48 PM EDT [facility] 56- Eosinophils % 1.6 0.0 - 6.0 % 04/14/2024 1:48 PM EDT [facility] 56- Basophils % 1.4 0.0 - 2.0 % 04/14/2024 1:48 PM EDT [facility] 56- Absolute Neutrophils 3.76 1.80 - 7.70 K/uL 04/14/2024 1:48 PM EDT [facility] 56- Absolute Lymphocytes 1.05 1.00 - 4.80 K/ul 04/14/2024 1:48 PM EDT [facility] 56- Absolute Monocytes 0.58 0.00 - 1.10 K/uL 04/14/2024 1:48 PM EDT [facility] 56-02 Absolute Eosinophils 0.09 0.00 - 0.70 K/uL 04/14/2024 1:48 PM EDT [facility] 56-02 Absolute Basophils 0.08 0.00 - 0.20 K/uL 04/14/2024 1:48 PM EDT [facility] 56-02 Blood Venous blood specimen / Unknown Venipuncture / Unknown 04/14/2024 1:41 PM EDT 04/14/2024 1:41 PM EDT Nataly Pugh MD LAB BLOOD ORDERABLES [facility] [address] [place] [address] * CBC (04/14/2024 1:41 PM EDT) [facility] Signature WBC 5.56 4.00 - 10.80 K/uL 04/14/2024 1:48 PM EDT [facility] 56- RBC 4.44 4.50 - 5.25 M/uL 04/14/2024 1:48 PM EDT [facility] 56 HGB 15.7 14.0 - 16.8 g/dL 04/14/2024 1:48 PM EDT [facility] 56 HCT 43.7 40.0 - 48.4 % 04/14/2024 1:48 PM EDT [facility] 56 MCV 98.4 82.0 - 99.5 fL 04/14/2024 1:48 PM EDT [facility] 56 MCH 35.4 27.0 - 34.0 pg 04/14/2024 1:48 PM EDT [facility] 56 MCHC 35.9 32.0 - 36.0 g/dL 04/14/2024 1:48 PM EDT [facility] 56 RDW 13.0 11.5 - 15.5 % 04/14/2024 1:48 PM EDT [facility] 56 PLT 276 140 - 400 K/uL 04/14/2024 1:48 PM EDT [facility] 56 MPV 9.9 6.6 - 11.1 fL 04/14/2024 1:48 PM EDT [facility] 56 Blood Venous blood specimen / Unknown Venipuncture / Unknown 04/14/2024 1:41 PM EDT 04/14/2024 1:41 PM EDT Nataly Pugh MD LAB BLOOD ORDERABLES [facility] [address] [place] [address] documented in this encounter Visit Diagnoses Diagnosis Sleep disorder Sleep disturbance, unspecified History of alcohol use disorder Lipid screening Screening for lipoid disorders documented in this encounter
--- OUTSIDE RECORDS SUMMARY | 2024-08-21 18:09 | External Medical Summary ---
Author Name Unknown Address Unknown Organization K09:[facility] 56-02 - [address] [place] [address] Laboratory Report Ordering Provider Test Date Status BRIANNA THOMAS 04/14/2024 13:41:10 Final Observation Date Value Abnormality Reference (Units ) Status BUN 04/14/2024 13:41:10 9 6-20 (mg/dL) Final Creatinine 04/14/2024 13:41:10 0.9 0.6-1.2 (mg/dL) Final Glomerular filtration rate/1.73 sq M.predicted [Volume Rate/Area] in Serum, Plasma or Blood by Creatinine-based formula (CKD-EPI) 04/14/2024 13:41:10 >90 >=60 (mL/min) Final eGFR is calculated based on the CKD-EPI 2020 equation Sodium 04/14/2024 13:41:10 143 135-146 (m mol/L) Final Potassium 04/14/2024 13:41:10 4.9 3.5-5.1 (m mol/L) Final Cl 04/14/2024 13:41:10 105 98-107 (mm ol/L) Final CO2 04/14/2024 13:41:10 24 22-32 (mmo l/L) Final Anion gap 04/14/2024 13:41:10 14 7-15 (mmol /L) Final Glucose 04/14/2024 13:41:10 112 70-120 (mg /dL) Final Albumin 04/14/2024 13:41:10 4.7 3.8-5.0 (g /dL) Final AST (Aspartate aminotransferase) 04/14/2024 13:41:10 34 10-50 (U/L) Final Alk Phos 04/14/2024 13:41:10 98 35-130 (U/ L) Final Bilirubin, Total 04/14/2024 13:41:10 0.6 <=1 .2 (mg/dL) Final Calcium 04/14/2024 13:41:10 9.5 8.4-10.2 ( mg/dL) Final Protein 04/14/2024 13:41:10 7.5 6.0-8.3 (g /dL) Final ALT (Alanine aminotransferase) 04/14/2024 13:41:10 37 10-50 (U/L) Final Performing Location [facility] 56 [address] [place] [address]
--- OUTSIDE RECORDS SUMMARY | 2024-08-21 18:09 | External Medical Summary | Summary of Care ---
Author Name Unknown Organization [facility] Address [address] [place] [address] Phone [phone] Care Team Providers Care [employer] Sales Representative Name Role Phone Unavailable Primary Care Provider Unavailabl e Reason for Referral * Evaluate & Treat - Unlimited Visits (Within 30 days (routine)) - Authorized Specialty Diagnoses / Procedures Referred By Victoria t Referred To Contact Sleep Medicine / Sleep Disorders Diagnoses Sleep disorder Nataly Pugh MD [address] [facility], [place] [address] Referral ID Status Reason Start Date Expiration Date Visits Requested Visits Authorized [id number] Authorized Specialty Services Required 04/08/2024 2 2 Question Answer [facility] CAD SLEEP MED ADULT REFERRAL All Other Sleep Conditions Referral Priority Within 30 days (routine) Where should this appointment be scheduled? [facility] Reason for Visit * Reason Comments Sleep Problems Patient says that he would like to receive a sleep study because he doesn't seem to be elis to retain a quality night of sleep. He says that he has persistent nightmares when he does retain a good night of sleep. He sometimes get 8 hours but more often will get 4-6 hours instead. Encounter Details Date Type Department Care Team (Late st Contact Info) Description 04/08/2024 11:20 AM EDT Office Visit General Internal Medicine [facility] [address] [place] [phone] Nataly Pugh MD [address] [place] [address] [id number] Sleep disorder*; Depression with anxiety; History of nightmares; History of alcohol use disorder; Marijuana use, episodic; Lipid screening Allergies Active Allergy Reactions Criticality Noted Date Comments Sulfa Antibiotics Rash 04/08/2024 documented as of this encounter (statuses as of 04/08/2024) Medications Medication Sig Dispensed Refills Start Date [...] as needed for anxiety-Rx Psychiatrist 04/08/2024 Active Prazosin HCl 5 MG Oral Capsule (Minipress) Take 1 Capsule by mouth in the morning and 1 Capsule before bedtime. 4 Discontinued Propranolol HCl 10 MG Oral Tablet (Inderal) Take 1 Tablet by mouth in the morning and 1 Tablet at noon and 1 Tablet before bedtime. 4 Discontinued hydrOXYzine HCl 50 MG Oral Tablet Take 1 Tablet by mouth 3 times a day as needed. 4 Discontinued(Former[facility] List Clean Up) hydrOXYzine Pamoate 50 MG Oral Capsule (Vistaril) Take 1 Capsule by mouth 3 times a day as needed for Anxiety. 11/16/2023 4 Discontinued documented as of this encounter (statuses as of 04/08/2024) Active Problems Problem Noted Date Diagnosed Date Depression with anxiety 04/08/2024 History of nightmares 04/08/2024 History of alcohol use disorder 04/08/2024 Marijuana use, episodic 04/08/2024 documented as of this encounter (statuses as of 04/08/2024) Immunizations No known immunizationsdocumented as of this encounter Social History Tobacco Use Types Packs/Day Years Used Date Smoking Tobacco: Former Cigarettes Q uit: 2014 Passive Smoke Exposure: Never Smokeless Tobacco: Former Tobacco Cessation:Counseling Given: No Comments:Does not participate in the practice Alcohol Use Standard Drinks/Week [...] Sign Reading Time Taken Comments Blood Pressure 128/80 04/08/2024 11:38 AM EDT Pulse 91 04/08/2024 11:38 AM EDT Temperature 36.3 C (97.4 F) 04/08/2024 11:38 AM E DT Respiratory Rate 16 04/08/2024 11:38 AM EDT Oxygen Saturation 96% 04/08/2024 11:38 AM EDT Inhaled Oxygen Concentration - - Weight 77.6 kg (171 lb) 04/08/2024 11:38 AM EDT Height - - Body Mass Index - - documented in this encounter Progress Notes * Nataly Pugh MD - 04/08/2024 12:01 PM EDT SUBJECTIVE: Robert Lincoln is a 38 year old male. Chief Complaint Patient presents with Sleep Problems Patient says that he would like to receive a sleep study because he doesn't seem to be elis to retain a quality night of sleep. He says that he has persistent nightmares when he does retain a good night of sleep. He sometimes get 8 hours but more often will get 4-6 hours instead. HPI: Patient being seen for DUCT MAKER eval I have reviewed the patient's medications and allergies, past medical, surgical, social and family history, updating these as appropriate in note/chart. See Histories section of the electronic medical record for a display of this information. Patient lives in the [facility], states he did not have a primary care physician in a long time. Followed by psychiatrist Dr. Elijah Horat in [place] since 2021 History of alcohol abuse disorder, history of hospitalization in 11/14/2023 for detox, states also diagnosed with depression, anxiety, history of nightmares - follows up with them every 6-8 months. Also sees a therapist once a week on Mondays - on duloxetine 40 mg, prazosin 5 mg at night, hydroxyzine 50 mg 1 at night and during the day as needed, naltrexone 25 mg half tablet daily, propranolol 10-20 mg twice daily as needed for anxiety. Chronic alcohol use disorder, states he still drinks maybe every 2 weeks about 2-3 L of wine Smoked in the past quit in 2014. Uses marijuana at least 3 times a week, denies any IV drug use. States has problems with getting to sleep. Currently working part-time at a [employer] from 4-8 p.m., comes home and does some cooking, reading, painting, gardening, walking about 2 miles. Unable to go to sleep till 3-4 am , wakes up between 11:00 a.m. to 1:00 p.m.. does feel refreshed on waking up. No known snoring /apnea. No family history of sleep apnea. Denies symptoms suggestive of restless leg. Thinks he has sleep disorder and would like to have a sleep study. Appetite is good.no sig wt loss/gain No headache,URI symptoms, vision changes No neck pain/swelling, chest pain, palpitations, shortness of breath, leg edema No nausea,vomiting,heartburn, constipation or diarrhea, blood in the stool or black stool, abdominal pain. No blood in the urine, no urinary problems. No night sweats, no unusual bleeding/bruising, and no swollen nodes. No excessive thirst Or urination . No rash, new/changing skin lesions. No joint pain or swelling. Had vaccines at his local pharmacy, previous pcp in [place] There is no immunization history on file for this patient. Patient Active Problem List Diagnosis Depression with anxiety History of nightmares History of alcohol use disorder Marijuana use, episodic Current Outpatient Medications Medication Sig Dispense Refill DULoxetine HCl 40 MG Oral Capsule Delayed Release Sprinkle Take by mouth. naltrexone 25 mg OR Tablet Take 0.5 Tablets by mouth in the morning. Prazosin HCl 5 MG Oral Capsule (Minipress) Take 1 Capsule by mouth every night at bedtime. Rx Psychiatrist Propranolol HCl 10 MG Oral Tablet (Inderal) Take 1 Tablet by mouth 2 times a day as needed for Anxiety. Rx Psychiatrist hydrOXYzine Pamoate 50 MG Oral Capsule (Vistaril) 1 at night and in day as needed for anxiety-Rx Psychiatrist No current facility-administered medications for this visit. No past medical history on file. No past surgical history on file. No family history on file. Social History Tobacco Use Smoking status: Former Current packs/day: 0.00 Types: Cigarettes Quit date: 2014 Years since quittin.4 Passive exposure: Never Smokeless tobacco: Former Tobacco comments: Does not participate in the practice Substance Use Topics Alcohol use: Yes Comment: h/o alcohol abuse on naltrexone Drug use: Yes Frequency: 3.0 times per week Types: Marijuana Review of patient's allergies indicates: Allergen Reactions Sulfa Antibiotics Rash OBJECTIVE: BP 128/80 | Pulse 91 | Temp 36.3 C (97.4 F) (Tympanic) | Resp 16 | Wt 77.6 kg (171 lb) | SpO2 96% PHYSICAL EXAM: General: alert, healthy, no distress, well nourished and well developed Head: Normocephalic, atraumatic Eye Exam: PERRLA, EOMI, Conjunctiva non-injected, sclera clear Ears: External ears normal, Canals clear, TM normal Nose: no mucosal erythema, no mucosal edema, no purulent discharge Oropharynx: no exudate and no erythema, tongue sl large, no significant narrowing of the oropharynx Neck: supple, no bruits, thyroid normal size, non-tender, without nodularity Lymph: No palpable lymphadenopathy. Heart: Regular rhythm and rate, no murmurs and no gallops Lungs: lungs clear to auscultation Abdomen: Soft, non-tender, normal bowel sounds, no masses or organomegaly, no bruits Extremities: no edema, no clubbing, no cyanosis. Neuro Exam: alert & oriented x 3 with fluent speech, no focal motor/sensory deficits, gait normal Skin: skin color, texture, turgor are normal, no rashes ASSESSMENT/PLAN: Sleep disorder (Primary) - COMPREHENSIVE METABOLIC PANEL; Future; Expected date: 04/11/2024 - TSH WITH FREE T4 IF INDICATED; Future; Expected date: 04/11/2024 - CBC WITH WBC DIFFERENTIAL; Future; Expected date: 04/11/2024 - FERRITIN; Future; Expected date: 04/11/2024 - IRON SCREEN, INCLUDING TIBC; Future; Expected date: 04/11/2024 - SLEEP MEDICINE REFERRAL OP Depression with anxiety History of nightmares History of alcohol use disorder - COMPREHENSIVE METABOLIC PANEL; Future; Expected date: 04/11/2024 - CBC WITH WBC DIFFERENTIAL; Future; Expected date: 04/11/2024 Marijuana use, episodic Lipid screening - LIPID PANEL WITH DIRECT LDL IF TG IS HIGH; Future; Expected date: 04/11/2024 -- advised to schedule follow up with his psychiatrist. soon, strongly advised to quit drinking alcohol, also stopped using marijuana. Workup as above, refer to sleep clinic for evaluation Follow Up: Return in about 6 months (around 10/08/2024), or if symptoms worsen or fail to improve, for Return with Physician, Fasting Labs Soon. | For: Return with Physician, Fasting Labs Soon | Check-out note: [facility] 11/18, vaccine records from in [place] and from his pharmacy (This note was completed using the dictation program Fluency Direct. As such, there may be misspellings, word substitutions, or other variations that should not change the essence of the clinical content of this encounter note. If there is need for further clarification, please direct questions to the provider listed above.) Patient and / caregiver verbalize understanding of above instructions and agrees with plan of care. Nataly Pugh MD 04/08/2024 documented in this encounter Nursing Notes * Deacon Horta MED ASSIST - 04/08/2024 11:42 AM EDT The patient has been properly identified by confirmation of name and date of . Chief Complaint Patient presents with Sleep Problems Patient says that he would like to receive a sleep study because he doesn't seem to be elis to retain a quality night of sleep. He says that he has persistent nightmares when he does retain a good night of sleep. He sometimes get 8 hours but more often will get 4-6 hours instead. documented in this encounter Plan of Treatment Upcoming Encounters Date Type Department Care Team (Late st Contact Info) Description 07/07/2024 2:30 PM EDT Office Visit Sleep Disorders Ctr [facility] [address] [place] [phone] Tania Erwin CRNP [address] [facility] [place] [id number] 10/14/2024 1:20 PM EST Office Visit General Internal Medicine [facility] [address] [place], [place] [address] Nataly Pugh MD [address] [place] [address] Scheduled Orders Name Type Priority Associated Diagnoses Orde r Schedule COMPREHENSIVE METABOLIC PANEL Lab Routine Sleep disorder History of alcohol use disorder Expected: 04/11/2024 (Approximate), Expires: 04/08/2025 TSH WITH FREE T4 IF INDICATED Lab Routine Sleep disorder Expected: 04/11/2024 (Approximate), Expires: 04/08/2025 LIPID PANEL WITH DIRECT LDL IF TG IS HIGH Lab Routine Lipid screening Expected: 04/11/2024 (Approximate), Expires: 04/08/2025 CBC WITH WBC DIFFERENTIAL Lab Routine Sleep disorder History of alcohol use disorder Expected: 04/11/2024 (Approximate), Expires: 04/08/2025 FERRITIN Lab Routine Sleep disorder Expected: 04/11/2024 (Approximate), Expires: 04/08/2025 IRON SCREEN, INCLUDING TIBC Lab Routine Sleep disorder Expected: 04/11/2024 (Approximate), Expires: 04/08/2025 Scheduled Referrals Name Type Priority Associated Diagnoses Orde r Schedule SLEEP MEDICINE REFERRAL OP Referral Within 30 days (routine) Sleep disorder Ordered: 04/08/2024 Health Maintenance Due Date Last Done Comments [...] as of this encounter Visit Diagnoses Diagnosis Sleep disorder- Primary Sleep disturbance, unspecified Depression with anxiety Dysthymic disorder History of nightmares History of alcohol use disorder Marijuana use, episodic Lipid screening Screening for lipoid disorders documented in this encounter"
--- OUTSIDE RECORDS SUMMARY | 2024-08-21 18:09 | External Medical Summary ---
Author Name Unknown Address Unknown Organization K01:[facility] [place] [address] [place] [address] Laboratory Report Ordering Provider Test Date Status BRIANNA THOMAS 04/14/2024 13:41:10 Final Observation Date Value Abnormality Reference (Units ) Status Iron 04/14/2024 13:41:10 175 45-176 (ug /dL) Final Iron-binding capacity 04/14/2024 13:41:10 383 250-425 (ug/dL) Final Transferrin Sat % 04/14/2024 13:41:10 46 15 -55 (%) Final Performing Location [facility] [place] [address] [place] [address]
--- NOTE | 2024-08-21 18:19 | Emergency Department Note ---
Impression & Plan Alcohol withdrawal, Major depressive disorder, recurrent episode with anxious distress, Alcohol use disorder, Alcoholic intoxication ED Provider Note NAME: GENO AUSTIN AGE: 38 SEX: M : 1985 ARRIVES VIA: Walk-In INFORMANT: Patient ED PROVIDER(S): Rhys Spencer DO CHIEF COMPLAINT: Withdrawal HPI: Patient is a 38-year-old male who presents ER with a past medical history of alcohol abuse, anxiety and depression. He notes that he wants to stop drinking alcohol and go to rehab. Last drink was last night around midnight. He notes he has had withdrawal seizures before in the past. He has been drinking 1.5 L of wine per day for the past several months. Currently denies any headache or change in vision. No chest pain or shortness of breath. He admits to some hallucinations in combination with tremors. No other exacerbating or remitting factors. ADDITIONAL HISTORY OBTAINED: Per HPI Chronic Medical/Social Conditions Affecting Care: Per HPI PAST MEDICAL HISTORY:See Below PAST SURGICAL HISTORY:See Below FAMILY HISTORY:See Below SOCIAL HISTORY:See Below HOME MEDICATIONS:See Below ALLERGIES:See Below VITALS:See Below PHYSICAL EXAMINATION: GENERAL: Sitting up in bed, alert, well appearing, well nourished, no distress, non-toxic EYE EXAM: normal conjunctiva. PERRL and EOM's grossly intact. OROPHARYNX: mucous membranes are moist NECK: supple, no nuchal rigidity, no adenopathy, non-tender LUNGS: Clear to auscultation. Normal chest wall mechanics HEART: no murmurs, S1 normal and S2 normal ABDOMEN: abdomen soft, non-tender, normo-active bowel sounds, no masses, no rebound or guarding. UPPER EXTREMITIES: upper extremities are grossly normal. LOWER EXTREMITIES: No pitting edema. NEURO EXAM: Normal sensorium, cranial nerves II-XII grossly intact, normal speech, no gross weakness of arms, no gross weakness of legs. MEDICAL DECISION MAKING: Patient is a 38-year-old male who presents to the ER for the above stated complaint. IV was established and blood work was obtained. Labs show no significant leukocytosis or anemia. BMP was unremarkable. Mild transaminitis with AST and ALT in the 80s. T. bili was normal. Lipase was normal. UA was clean. Alcohol at 190. Patient was given IV Valium for tremors and hypertension and tachycardia. Was given IV fluids. IV thiamine and folate combination with oral multivitamin. Patient was discussed with the hospitalist admitted for further workup with a previous history of withdrawal seizures. Consults/Care Managements Discussions: Per MDM Triage Nursing notes reviewed. Limited review of prior medical records performed Vital Signs: reviewed and remarkable for no significant abnormalities Differential diagnosis: Infection, dehydration, metabolic abnormality, hypo/hyperglycemia, electrolyte disturbance, anemia, hypoxia, cardiac sources, intracerebral event, toxicologic, neurologic, as well as other pathologies. ER treatment provided: See below Diagnostics interpreted by me include EKG and cardiac monitoring as listed below: -Cardiac Monitoring: An order was placed for continuous cardiac monitoring. The monitor shows a rate of 100 with sinus rhythm. -ECG: none -Laboratory studies:Interpreted by me as stated above in MDM and shown below. Imaging studies: Xrays: As interpreted by me:none CTs show: none Procedures:none Critical Care: None Past Med/Surg History Problem List (Updated 08/21/24 @ 22:23 by Rhys Spencer DO) Alcoholic intoxication (Acute) Major depressive disorder, recurrent episode with anxious distress (Acute) Alcohol use disorder (Acute) Alcohol withdrawal (Acute) Anxiety (Acute) Social History Smoking Status: Current every day smoker Tobacco Type: E-cigarettes / Vaping Second Hand Exposure: No; Do You Dip or Chew Tobacco: No; Hx Alcohol Use: Yes Alcohol type: wine Hx Substance Use: Yes Last Used Substance: Unknown Substance Use Type Other:: occasional Preferred Language: Beninese Communication Ability: Effective 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 Of 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: No Beliefs That Will Affect Care: None Current Living Situation: Significant Other Feels Safe at Home: Yes Gender Identity: Male Assistive Devices: None Allergies Allergies Allergy/AdvReac Type Severity Reaction Status Date / Time Sulfa (Sulfonamide Allergy Mild Rash Verified 11/11/23 12:52 Antibiotics) Home Meds Home Medications Medication Instructions Recorded Confirmed clonidine HCl 0.1 mg tablet 0.1 mg PO HS 08/21/24 08/21/24 duloxetine 20 mg capsule,delayed 40 mg PO DAILY 08/21/24 08/21/24 release hydroxyzine HCl 50 mg tablet 50 mg PO DAILY PRN Anxiety 08/21/24 08/21/24 propranolol 10 mg tablet 10 mg PO BID PRN Anxiety 08/21/24 08/21/24 Results & Data (ED) Vital Signs Vital Signs - 24 hr 08/21/24 18:05 08/21/24 18:29 08/21/24 18:29 Temperature 36.6 C Temperature Source Temporal Artery Scan Pulse Rate 99 H Pulse Rate [Right Finger] 89 Respiratory Rate 20 18 Respiratory Effort / Characteristics Non-Labored Non-Labored Spontaneous Respiratory Depth Normal Blood Pressure 148/101 H Blood Pressure [Left Arm] 120/87 Blood Pressure Mean 116 Blood Pressure Mean [Left Arm] 98 Blood Pressure Position [Left Arm] Lying Pulse Oximetry 97 93 93 Oxygen Delivery Method Room Air Room Air Room Air Sepsis Recent Fever Within 48 Hours No Sepsis New/Unexplained Change in Mental Status No Sepsis Action Taken by Nursing No Action Required 08/21/24 18:29 08/21/24 18:50 08/21/24 21:00 Temperature Temperature Source Pulse Rate 89 88 Pulse Rate [Right Finger] 97 H Respiratory Rate 18 18 Respiratory Effort / Characteristics Non-Labored Spontaneous Respiratory Depth Blood Pressure Blood Pressure [Left Arm] 132/96 Blood Pressure Mean Blood Pressure Mean [Left Arm] 108 Blood Pressure Position [Left Arm] Lying Pulse Oximetry 93 96 Oxygen Delivery Method Room Air Room Air Sepsis Recent Fever Within 48 Hours Sepsis New/Unexplained Change in Mental Status Sepsis Action Taken by Nursing Laboratory Data 08/21/24 18:54 08/21/24 19:41 Lab Results 08/21/24 08/21/24 08/21/24 Range/Units 18:37 18:54 19:41 WBC 5.12 (4.8-10.8) K/ul RBC 4.23 L (4.70-6.10) M/uL Hgb 14.4 (14.0-18.0) g/dl Hct 41.1 L (42.0-52.0) % MCV 97.2 (80.0-100.0) fL MCH 34.0 (25.0-34.0) pg MCHC 35.0 (32.0-36.0) g/dL RDW Std Deviation 42.4 (36.4-46.3) fL RDW Coeff of Rose Marie 11.9 (11.5-14.5) % Plt Count 242 (130-400) K/uL MPV 10.0 (9.4-12.4) fL Immature Gran % (Auto) 0.2 % Neut % (Auto) 76.5 % Lymph % (Auto) 12.5 % [place] % (Auto) 8.6 % Eos % (Auto) 0.6 % Baso % (Auto) 1.6 % Neut # (Auto) 3.92 (1.40-6.50) K/uL Lymph # (Auto) 0.64 L (1.20-3.40) K/uL [place] # (Auto) 0.44 (0.11-0.59) K/uL Eos # (Auto) 0.03 (0.00-0.50) K/uL Baso # (Auto) 0.08 (0.00-0.20) K/uL Immature Gran # (Auto) 0.01 (0.01-0.20) K/uL Sodium 139 (136-145) mmol/L Potassium TNP 4.1 Chloride 102 (98-107) mmol/L Carbon Dioxide 28 (21-32) mmol/L Anion Gap 9 (3-11) BUN 6 (6-23) mg/dl Creatinine 0.70 (0.6-1.4) mg/dl Est Cr Clr Drug Dosing 132.5 ml/min eGFR 120.20 BUN/Creatinine Ratio 8.6 L (10-20) Glucose 104 H (70-99(Fasting)) mg/dl Calcium 9.4 (8.6-10.3) mg/dl Total Bilirubin 0.5 (0.2-1.0) mg/dl AST TNP 78 H ALT 84 H (7-52) U/L Alkaline Phosphatase 105 H (34-104) U/L Total Protein 8.3 (6.0-8.3) gm/dl Albumin 4.7 (3.4-5.0) gm/dl Globulin 3.6 (2.5-4.0) gm/dl Albumin/Globulin Ratio 1.3 (0.9-2) Lipase 59 (11-82) U/L Urine Color Dark Yellow Urine Appearance Clear (Clear) Urine pH 6.0 (4.5-7.5) Ur Specific [place] 1.019 (1.000-1.030) Urine Protein Trace H (Negative) Urine Glucose (UA) Negative (Negative) Urine Ketones Trace H (Negative) Urine Blood Negative (Negative) Urine Nitrite Negative (Negative) Urine Bilirubin Negative (Negative) Urine Urobilinogen Positive H (Negative) Ur Leukocyte Esterase Negative (Negative) Urine WBC (Auto) 0-5 (0-5) /hpf Urine RBC (Auto) 0-2 (0-2) /hpf U Hyaline Cast (Auto) 0-2 (0-2) /lpf U Epithel Cells (Auto) 0-2 (0-2) /hpf Urine Bacteria (Auto) None Seen (None Seen) Ethyl Alcohol mg/dL 190.0 H (<10.0) mg/dl Administered Medications Discontinued Medications Diazepam (Diazepam 5 Mg/Ml 10ml Vial) 5 mg IV NOW STA Stop: 08/21/24 18:40 Last Admin: 08/21/24 19:19 Dose: 5 mg Documented By: JERMAINE Thiamine HCl 100 mg/ Syringe 10 mls @ 2 mls/min IV NOW STA Stop: 08/21/24 18:13 Last Admin: 08/21/24 19:14 Dose: 2 mls/min Documented By: JERMAINE Folic Acid 1 mg/ Syringe 10 mls @ 5 mls/min IV NOW STA Stop: 08/21/24 18:16 Last Admin: 08/21/24 19:14 Dose: 5 mls/min Documented By: JERMAINE Multivitamins (Multivitamin Tab) 1 tab PO NOW STA Stop: 08/21/24 18:16 Last Admin: 08/21/24 19:35 Dose: 1 tab Documented By: PEDRITO Discharge Plan Visit Data Chief Complaint: Detox Request Stated Complaint: ALCOHOL DETOX ED Provider: Rhys Spencer Discharge Problem: Alcohol withdrawal, Major depressive disorder, recurrent episode with anxious distress, Alcohol use disorder, Alcoholic intoxication Patient Disposition: Admitted As Inpatient Discharge Instructions Interventions: ED Discharge Assessment Last Done: 08/21/24 22:09
[2024-08-21 18:54] LABS: Appearance Urine Clear (Clear); Bacteria Urine Automated None Seen (None Seen); Bilirubin Urine Negative (Negative); Blood Urine Negative (Negative); Cast Urine Automated 0-2 /lpf (0-2); Color Urine Dark Yellow; Epithelial Cell Urine Auto 0-2 /hpf (0-2); Glucose Urine UA Negative (Negative); Ketones Urine Trace (Negative); Leukocyte Esterase Urine Negative (Negative); Nitrite Urine Negative (Negative); Protein Urine Trace (Negative); RBC Urine Automated 0-2 /hpf (0-2); Specific Gravity Urine 1.019 (1.000-1.030); Urobilinogen Urine Positive (Negative); WBC Urine Automated 0-5 /hpf (0-5)
[2024-08-21] MEDS: FOLIC ACID 1 MG in SYRINGE 9.8 ML IV STA (19:14)
[2024-08-21] MEDS: THIAMINE HCL 100 MG in SYRINGE 9 ML IV STA (19:14)
[2024-08-21] MEDS: diazePAM 5 MG/ML 10ML VIAL IV STA (19:19)
[2024-08-21 19:32] LABS: Alanine Aminotransferase 84 U/L (7-52); Albumin Globulin Ratio 1.3 (0.9-2); Albumin Level 4.7 gm/dl (3.4-5.0); Alkaline Phosphatase 105 U/L (34-104); Anion Gap 9 (3-11); BUN Creatinine Ratio 8.6 (10-20); Bilirubin,Total 0.5 mg/dl (0.2-1.0); Blood Urea Nitrogen 6 mg/dl (6-23); Calcium 9.4 mg/dl (8.6-10.3); Carbon Dioxide 28 mmol/L (21-32); Chloride 102 mmol/L (98-107); Creatinine Clr Calc Pharmacy 132.5 ml/min; Globulin 3.6 gm/dl (2.5-4.0); Glucose 104 mg/dl (70-99(Fasting)); Lipase 59 U/L (11-82); Sodium 139 mmol/L (136-145); Total Protein 8.3 gm/dl (6.0-8.3)
[2024-08-21 19:33] LABS: Basophils # (auto) 0.08 K/uL (0.00-0.20); Basophils % (auto) 1.6 %; Eosinophils # (auto) 0.03 K/uL (0.00-0.50); Eosinophils % (auto) 0.6 %; Hematocrit (blood only) 41.1 % (42.0-52.0); Hemoglobin 14.4 g/dl (14.0-18.0); Immature Granulocytes # (auto) 0.01 K/uL (0.01-0.20); Immature Granulocytes % (auto) 0.2 %; Lymphocytes # (auto) 0.64 K/uL (1.20-3.40); Lymphocytes % (auto) 12.5 %; Mean Corpuscular Volume 97.2 fL (80.0-100.0); Monocytes # (auto) 0.44 K/uL (0.11-0.59); Monocytes % (auto) 8.6 %; Neutrophils # (auto) 3.92 K/uL (1.40-6.50); Neutrophils % (auto) 76.5 %; Platelet Count 242 K/uL (130-400); RDW Coefficient of Variation 11.9 % (11.5-14.5); RDW Standard Deviation 42.4 fL (36.4-46.3); Red Blood Count 4.23 M/uL (4.70-6.10); White Blood Count 5.12 K/ul (4.8-10.8)
[2024-08-21] MEDS: MULTIVITAMIN TAB PO STA (19:35)
[2024-08-21 20:22] LABS: Potassium 4.1 mmol/L (3.5-5.1)
--- NOTE | 2024-08-21 22:07 | History & Physical Report ---
Date of Service August 21, 2024 Assessment & Plan (1) Alcohol withdrawal: Plan: 38-year-old male with past medical history significant for ongoing alcoholism, history of nightmares, depression with anxiety comes because of alcoholism and request for detox. Patient says for last 2 months he was drinking 1.5 L of wine daily and wanted help with detox. Patient states one time in the past had alcohol withdrawal seizures. Currently resting comfortably and hemodynamically stable. Somewhat shaky. Denies any headache. No dizziness. Vision is okay. No earache or runny nose or sore throat. No cough. No fevers. Appetite is okay. No chest pain or shortness of breath. No nausea or vomiting. No abdominal pain. Normal bowel and bladder movements. Denies any blood in stools or black stools. Alcoholism Alcohol withdrawal Drinking 1.5 L once daily History of alcohol withdrawal seizures in the past Alcohol level 190 Request for detox Received IV Valium in ER received IV thiamine and IV folic acid and multivitamins in the ER which will be continued Will place on alcohol withdrawal protocol with Librium and IV Ativan as needed Close monitor in telemetry Elevated LFTs Most from alcoholism Follow repeat labs and if trending up will get imaging studies and hepatitis panel History of nightmares Continue home clonidine History of depression and anxiety Continue duloxetine DVT prophylaxis Lovenox Disposition Telemetry Full code. History of Present Illness Chief Complaint: Alcoholism and detox request Primary Care Provider: Nataly Pugh MD 38-year-old male with past medical history significant for ongoing alcoholism, history of nightmares, depression with anxiety comes because of alcoholism and request for detox. Patient says for last 2 months he was drinking 1.5 L of wine daily and wanted help with detox. Patient states one time in the past had alcohol withdrawal seizures. Currently resting comfortably and hemodynamically stable. Somewhat shaky. Denies any headache. No dizziness. Vision is okay. No earache or runny nose or sore throat. No cough. No fevers. Appetite is okay. No chest pain or shortness of breath. No nausea or vomiting. No abdominal pain. Normal bowel and bladder movements. Denies any blood in stools or black stools. Past medical history. As mentioned above Past surgical history. Denies any surgeries. Social history. Denies smoking. Heavy alcohol use. Smokes marijuana once in a while. Denies any other drug use. Family history. Mother had breast cancer. Family history significant for anxiety depression and substance abuse as per patient Allergies Allergy/AdvReac Type Severity Reaction Status Date / Time Sulfa (Sulfonamide Allergy Mild Rash Verified 11/11/23 12:52 Antibiotics) Home Medications Medication Instructions Recorded Confirmed Type clonidine HCl 0.1 mg tablet 0.1 mg PO HS 08/21/24 08/21/24 History duloxetine 20 mg capsule,delayed 40 mg PO DAILY 08/21/24 08/21/24 History release hydroxyzine HCl 50 mg tablet 50 mg PO DAILY PRN Anxiety 08/21/24 08/21/24 History propranolol 10 mg tablet 10 mg PO BID PRN Anxiety 08/21/24 08/21/24 History Past Med/Surg History Problem List (Updated 08/21/24 @ 22:23 by Rhys Spencer DO) Alcoholic intoxication (Acute) Major depressive disorder, recurrent episode with anxious distress (Acute) Alcohol use disorder (Acute) Alcohol withdrawal (Acute) Anxiety (Acute) Social History Smoking Status: Former smoker Tobacco Type: E-cigarettes / Vaping Second Hand Exposure: No; Do You Dip or Chew Tobacco: No; Hx Alcohol Use: Yes Alcohol type: wine Hx Substance Use: Yes Last Used Substance: Unknown Substance Use Type Other:: occasional Preferred Language: [place] Communication Ability: Effective [employer] Required: No Beliefs That Will Affect Care: None Current Living Situation: Alone Other Information That Helps Us Care for You: No Feels Safe at Home: Yes Safety Concerns: Feels Safe At This Time Gender Identity: Male Assistive Devices: None Review of Systems Review of Systems: All systems reviewed & are unremarkable except as noted in HPI & below Physical Exam Physical Exam: General- Not in distress Head- atraumatic Eyes- PERRL. ENT- oropharynx clear Neck- supple, no JVD. Lungs- clear to auscultation no wheezing or crackles. Heart- regular rate and rhythm; no murmur, no gallop. Abdomen- normal bowel sounds, soft, nontender, no distension. Extremities- no pretibial edema, no erythema seen. Neuro- alert, oriented PERRL, no facial palsy; no dysarthria; moves extremities Results & Data Results & Data Vital Signs (Past 12 Hours) Vital Signs Temp Pulse Pulse Resp BP BP Pulse Ox 10/27/24 18:50 88 08/21/24 18:29 89 18 93 08/21/24 18:29 89 18 120/87 93 08/21/24 18:29 93 08/21/24 18:05 36.6 C 99 H 20 148/101 H 97 O2 Del Method 08/21/24 18:50 08/21/24 18:29 Room Air 08/21/24 18:29 Room Air 08/21/24 18:29 Room Air 08/21/24 18:05 Room Air Diagnostic Findings Laboratory Results WBC 5.12 K/ul (4.8-10.8) 08/21/24 18:54 RBC 4.23 M/uL (4.70-6.10) L 08/21/24 18:54 Hgb 14.4 g/dl (14.0-18.0) 08/21/24 18:54 Hct 41.1 % (42.0-52.0) L 08/21/24 18:54 MCV 97.2 fL (80.0-100.0) 08/21/24 18:54 MCH 34.0 pg (25.0-34.0) 08/21/24 18:54 MCHC 35.0 g/dL (32.0-36.0) 08/21/24 18:54 RDW Std Deviation 42.4 fL (36.4-46.3) 08/21/24 18:54 RDW Coeff of Rose Marie 11.9 % (11.5-14.5) 08/21/24 18:54 Plt Count 242 K/uL (130-400) 08/21/24 18:54 MPV 10.0 fL (9.4-12.4) 08/21/24 18:54 Immature Gran % (Auto) 0.2 % 08/21/24 18:54 Neut % (Auto) 76.5 % 08/21/24 18:54 Lymph % (Auto) 12.5 % 08/21/24 18:54 [place] % (Auto) 8.6 % 08/21/24 18:54 Eos % (Auto) 0.6 % 08/21/24 18:54 Baso % (Auto) 1.6 % 08/21/24 18:54 Neut # (Auto) 3.92 K/uL (1.40-6.50) 08/21/24 18:54 Lymph # (Auto) 0.64 K/uL (1.20-3.40) L 08/21/24 18:54 [place] # (Auto) 0.44 K/uL (0.11-0.59) 08/21/24 18:54 Eos # (Auto) 0.03 K/uL (0.00-0.50) 08/21/24 18:54 Baso # (Auto) 0.08 K/uL (0.00-0.20) 08/21/24 18:54 Immature Gran # (Auto) 0.01 K/uL (0.01-0.20) 08/21/24 18:54 Sodium 139 mmol/L (136-145) 08/21/24 18:37 Potassium 4.1 mmol/L (3.5-5.1) 08/21/24 19:41 Chloride 102 mmol/L (98-107) 08/21/24 18:37 Carbon Dioxide 28 mmol/L (21-32) 08/21/24 18:37 Anion Gap 9 (3-11) 08/21/24 18:37 BUN 6 mg/dl (6-23) 08/21/24 18:37 Creatinine 0.70 mg/dl (0.6-1.4) 08/21/24 18:37 Est Cr Clr Drug Dosing 132.5 ml/min 08/21/24 18:37 eGFR 120.20 08/21/24 18:37 BUN/Creatinine Ratio 8.6 (10-20) L 08/21/24 18:37 Glucose 104 mg/dl (70-99(Fasting)) H 08/21/24 18:37 Calcium 9.4 mg/dl (8.6-10.3) 08/21/24 18:37 Total Bilirubin 0.5 mg/dl (0.2-1.0) 08/21/24 18:37 AST 78 U/L (13-39) H 08/21/24 19:41 ALT 84 U/L (7-52) H 08/21/24 18:37 Alkaline Phosphatase 105 U/L (34-104) H 08/21/24 18:37 Total Protein 8.3 gm/dl (6.0-8.3) 08/21/24 18:37 Albumin 4.7 gm/dl (3.4-5.0) 08/21/24 18:37 Globulin 3.6 gm/dl (2.5-4.0) 08/21/24 18:37 Albumin/Globulin Ratio 1.3 (0.9-2) 08/21/24 18:37 Lipase 59 U/L (11-82) 08/21/24 18:37 Urine Color Dark Yellow 08/21/24 18:37 Urine Appearance Clear (Clear) 08/21/24 18:37 Urine pH 6.0 (4.5-7.5) 08/21/24 18:37 Ur Specific [place] 1.019 (1.000-1.030) 08/21/24 18:37 Urine Protein Trace (Negative) H 08/21/24 18:37 Urine Glucose (UA) Negative (Negative) 08/21/24 18:37 Urine Ketones Trace (Negative) H 08/21/24 18:37 Urine Blood Negative (Negative) 08/21/24 18:37 Urine Nitrite Negative (Negative) 08/21/24 18:37 Urine Bilirubin Negative (Negative) 08/21/24 18:37 Urine Urobilinogen Positive (Negative) H 08/21/24 18:37 Ur Leukocyte Esterase Negative (Negative) 08/21/24 18:37 Urine WBC (Auto) 0-5 /hpf (0-5) 08/21/24 18:37 Urine RBC (Auto) 0-2 /hpf (0-2) 08/21/24 18:37 U Hyaline Cast (Auto) 0-2 /lpf (0-2) 08/21/24 18:37 U Epithel Cells (Auto) 0-2 /hpf (0-2) 08/21/24 18:37 Urine Bacteria (Auto) None Seen (None Seen) 08/21/24 18:37 Ethyl Alcohol mg/dL 190.0 mg/dl (<10.0) H 08/21/24 18:37 Code Status & VTE Plan VTE Prophylaxis Plan VTE Prophylaxis will be ordered: Yes
[2024-08-21] MEDS ORDERED: Ativan IV Alcohol Withdrawal--Active Protocol IV PRN (22:12)
[2024-08-21] MEDS ORDERED: LORazepam 2 MG/1 ML VIAL IV PRN (22:12)
[2024-08-21] MEDS ORDERED: NITROGLYCERIN SL 0.4 MG/TAB TAB SL PRN (22:12)
[2024-08-21] MEDS ORDERED: chlordiazePOXIDE ALCOHOL WITHDRAWL 50MG PO STA (22:12)
[2024-08-21] MEDS: ENOXAPARIN INJ 40 MG/0.4 ML SYR SQ SCH (23:08)
[2024-08-21] MEDS: LORazepam 2 MG/1 ML VIAL IV PRN (23:09)
[2024-08-21] MEDS: chlordiazePOXIDE HCl 25 MG CAP PO SCH (23:13)
[2024-08-22 06:40] LABS: Basophils # (auto) 0.07 K/uL (0.00-0.20); Basophils % (auto) 1.3 %; Eosinophils # (auto) 0.04 K/uL (0.00-0.50); Eosinophils % (auto) 0.7 %; Hematocrit (blood only) 40.5 % (42.0-52.0); Hemoglobin 14.3 g/dl (14.0-18.0); Immature Granulocytes # (auto) 0.02 K/uL (0.01-0.20); Immature Granulocytes % (auto) 0.4 %; Lymphocytes # (auto) 1.11 K/uL (1.20-3.40); Lymphocytes % (auto) 19.9 %; Mean Corpuscular Hgb Conc 35.3 g/dL (32.0-36.0); Mean Corpuscular Volume 96.2 fL (80.0-100.0); Mean Platelet Volume 10.2 fL (9.4-12.4); Monocytes # (auto) 0.49 K/uL (0.11-0.59); Monocytes % (auto) 8.8 %; Neutrophils # (auto) 3.84 K/uL (1.40-6.50); Neutrophils % (auto) 68.9 %; Platelet Count 184 K/uL (130-400); RDW Coefficient of Variation 11.6 % (11.5-14.5); Red Blood Count 4.21 M/uL (4.70-6.10); White Blood Count 5.57 K/ul (4.8-10.8)
[2024-08-22 06:55] LABS: Albumin Globulin Ratio 1.4 (0.9-2); Albumin Level 4.1 gm/dl (3.4-5.0); BUN Creatinine Ratio 9.5 (10-20); Bilirubin Direct 0.2 mg/dl (0-0.2); Bilirubin,Total 0.8 mg/dl (0.2-1.0); Calcium 9.1 mg/dl (8.6-10.3); Creatinine Clr Calc Pharmacy 147.2 ml/min; Globulin 2.9 gm/dl (2.5-4.0); Magnesium 1.4 mg/dl (1.7-2.4); Potassium 3.7 mmol/L (3.5-5.1)
[2024-08-22 07:23] LABS: Folate (Folic Acid),Ser orPlas 16.47 ng/ml (>5.38)
[2024-08-22] MEDS: DULoxetine HCL 20 MG CAP PO SCH (08:01)
[2024-08-22] MEDS: FOLIC ACID 1 MG in SYRINGE 9.8 ML IV SCH (08:01)
[2024-08-22] MEDS: THIAMINE HCL 100 MG in SYRINGE 9 ML IV SCH (08:01)
[2024-08-22] MEDS: MULTIVITAMIN TAB PO SCH (08:01)
--- NOTE | 2024-08-22 08:45 | Hospitalist Progress Note ---
Date of Service August 22, 2024 Assessment & Plan (1) Alcohol withdrawal: Plan: 38-year-old male with past medical history significant for ongoing alcoholism, history of nightmares, depression with anxiety comes because of alcoholism and request for detox. Patient says for last 2 months he was drinking 1.5 L of wine daily and wanted help with detox. Patient states one time in the past had alcohol withdrawal seizures. Currently resting comfortably and hemodynamically stable. Somewhat shaky. Denies any headache. No dizziness. Vision is okay. No earache or runny nose or sore throat. No cough. No fevers. Appetite is okay. No chest pain or shortness of breath. No nausea or vomiting. No abdominal pain. Normal bowel and bladder movements. Denies any blood in stools or black stools. Alcoholism Alcohol withdrawal Drinking 1.5 L once daily History of alcohol withdrawal seizures in the past Alcohol level 190 Request for detox Received IV Valium in ER received IV thiamine and IV folic acid and multivitamins in the ER which will be continued Will place on alcohol withdrawal protocol with Librium and IV Ativan as needed Close monitor in telemetry Elevated LFTs Most from alcoholism Follow repeat labs and if trending up will get imaging studies and hepatitis panel History of nightmares Continue home clonidine History of depression and anxiety Continue duloxetine DVT prophylaxis Lovenox Disposition Telemetry Full code. Admission and Anticipated Discharge Date Admission Date: August 21, 2024 Subjective Pt seen in follow up of etoh withdrawal Currently laying in bed in NAD No fevers, chills, chest pain, shortness of breath, abd. pain, n/v Discussed w/ RN at the bedside Review of Systems Review of Systems: All systems reviewed & are unremarkable except as noted in Subjective Physical Exam Physical Exam: General- young M, laying in bed in NAD Head- atraumatic Eyes- PERRL. Neck- supple Lungs- clear to auscultation no wheezing or crackles. Heart- regular rate and rhythm; no murmur Abdomen- normal bowel sounds, soft, nontender, no distension. Extremities- no pretibial edema, no erythema seen. Neuro- alert, oriented PERRL, no facial palsy; no dysarthria; moves extremities Results & Data Results & Data Vital Signs (Past 12 Hours) Vital Signs Temp Pulse Pulse Resp BP BP Pulse Ox 08/22/24 08:07 36.9 C 79 18 141/98 H 98 10/28/24 03:20 37.0 C 88 20 138/99 97 08/22/24 00:30 96 H 08/21/24 23:45 37.1 C 98 H 20 133/92 95 08/21/24 23:00 89 08/21/24 22:45 37.0 C 90 22 149/106 H 99 08/21/24 22:15 37.2 C 86 18 135/72 100 08/21/24 22:09 36.6 C 84 18 117/93 95 08/21/24 21:00 97 H 18 132/96 96 O2 Del Method 08/22/24 08:07 Room Air 08/22/24 03:20 Room Air 08/22/24 00:30 08/21/24 23:45 Room Air 08/21/24 23:00 08/21/24 22:45 Room Air 08/21/24 22:15 Room Air 08/21/24 22:09 Room Air 08/21/24 21:00 Room Air Laboratory Results 08/22/24 08/21/24 08/21/24 Range/Units 06:07 19:41 18:54 WBC 5.57 5.12 (4.8-10.8) K/ul RBC 4.21 L 4.23 L (4.70-6.10) M/uL Hgb 14.3 14.4 (14.0-18.0) g/dl Hct 40.5 L 41.1 L (42.0-52.0) % MCV 96.2 97.2 (80.0-100.0) fL MCH 34.0 34.0 (25.0-34.0) pg MCHC 35.3 35.0 (32.0-36.0) g/dL RDW Std Deviation 41.0 42.4 (36.4-46.3) fL RDW Coeff of Rose Marie 11.6 11.9 (11.5-14.5) % Plt Count 184 242 (130-400) K/uL MPV 10.2 10.0 (9.4-12.4) fL Immature Gran % (Auto) 0.4 0.2 % Neut % (Auto) 68.9 76.5 % Lymph % (Auto) 19.9 12.5 % [place] % (Auto) 8.8 8.6 % Eos % (Auto) 0.7 0.6 % Baso % (Auto) 1.3 1.6 % Neut # (Auto) 3.84 3.92 (1.40-6.50) K/uL Lymph # (Auto) 1.11 L 0.64 L (1.20-3.40) K/uL [place] # (Auto) 0.49 0.44 (0.11-0.59) K/uL Eos # (Auto) 0.04 0.03 (0.00-0.50) K/uL Baso # (Auto) 0.07 0.08 (0.00-0.20) K/uL Immature Gran # (Auto) 0.02 0.01 (0.01-0.20) K/uL Sodium 140 (136-145) mmol/L Potassium 3.7 4.1 Chloride 102 (98-107) mmol/L Carbon Dioxide 27 (21-32) mmol/L Anion Gap 11 (3-11) BUN 6 (6-23) mg/dl Creatinine 0.63 (0.6-1.4) mg/dl Est Cr Clr Drug Dosing 147.2 ml/min eGFR 124.09 BUN/Creatinine Ratio 9.5 L (10-20) Glucose 82 (70-99(Fasting)) mg/dl Calcium 9.1 (8.6-10.3) mg/dl Magnesium 1.4 L (1.7-2.4) mg/dl Total Bilirubin 0.8 (0.2-1.0) mg/dl Direct Bilirubin 0.2 (0-0.2) mg/dl AST 65 H 78 H ALT 64 H (7-52) U/L Alkaline Phosphatase 79 (34-104) U/L Total Protein 7.0 (6.0-8.3) gm/dl Albumin 4.1 (3.4-5.0) gm/dl Globulin 2.9 (2.5-4.0) gm/dl Albumin/Globulin Ratio 1.4 (0.9-2) Lipase (11-82) U/L Vitamin B12 423 (180-914) pg/ml Folate 16.47 (>5.38) ng/ml Urine Color Urine Appearance (Clear) Urine pH (4.5-7.5) Ur Specific [place] (1.000-1.030) Urine Protein (Negative) Urine Glucose (UA) (Negative) Urine Ketones (Negative) Urine Blood (Negative) Urine Nitrite (Negative) Urine Bilirubin (Negative) Urine Urobilinogen (Negative) Ur Leukocyte Esterase (Negative) Urine WBC (Auto) (0-5) /hpf Urine RBC (Auto) (0-2) /hpf U Hyaline Cast (Auto) (0-2) /lpf U Epithel Cells (Auto) (0-2) /hpf Urine Bacteria (Auto) (None Seen) Ethyl Alcohol mg/dL (<10.0) mg/dl 08/21/24 Range/Units 18:37 WBC (4.8-10.8) K/ul RBC (4.70-6.10) M/uL Hgb (14.0-18.0) g/dl Hct (42.0-52.0) % MCV (80.0-100.0) fL MCH (25.0-34.0) pg MCHC (32.0-36.0) g/dL RDW Std Deviation (36.4-46.3) fL RDW Coeff of Rose [place] (11.5-14.5) % Plt Count (130-400) K/uL MPV (9.4-12.4) fL Immature Gran % (Auto) % Neut % (Auto) % Lymph % (Auto) % [place] % (Auto) % Eos % (Auto) % Baso % (Auto) % Neut # (Auto) (1.40-6.50) K/uL Lymph # (Auto) (1.20-3.40) K/uL [place] # (Auto) (0.11-0.59) K/uL Eos # (Auto) (0.00-0.50) K/uL Baso # (Auto) (0.00-0.20) K/uL Immature Gran # (Auto) (0.01-0.20) K/uL Sodium 139 (136-145) mmol/L Potassium TNP Chloride 102 (98-107) mmol/L Carbon Dioxide 28 (21-32) mmol/L Anion Gap 9 (3-11) BUN 6 (6-23) mg/dl Creatinine 0.70 (0.6-1.4) mg/dl Est Cr Clr Drug Dosing 132.5 ml/min eGFR 120.20 BUN/Creatinine Ratio 8.6 L (10-20) Glucose 104 H (70-99(Fasting)) mg/dl Calcium 9.4 (8.6-10.3) mg/dl Magnesium (1.7-2.4) mg/dl Total Bilirubin 0.5 (0.2-1.0) mg/dl Direct Bilirubin (0-0.2) mg/dl AST TNP ALT 84 H (7-52) U/L Alkaline Phosphatase 105 H (34-104) U/L Total Protein 8.3 (6.0-8.3) gm/dl Albumin 4.7 (3.4-5.0) gm/dl Globulin 3.6 (2.5-4.0) gm/dl Albumin/Globulin Ratio 1.3 (0.9-2) Lipase 59 (11-82) U/L Vitamin B12 (180-914) pg/ml Folate (>5.38) ng/ml Urine Color Dark Yellow Urine Appearance Clear (Clear) Urine pH 6.0 (4.5-7.5) Ur Specific [place] 1.019 (1.000-1.030) Urine Protein Trace H (Negative) Urine Glucose (UA) Negative (Negative) Urine Ketones Trace H (Negative) Urine Blood Negative (Negative) Urine Nitrite Negative (Negative) Urine Bilirubin Negative (Negative) Urine Urobilinogen Positive H (Negative) Ur Leukocyte Esterase Negative (Negative) Urine WBC (Auto) 0-5 (0-5) /hpf Urine RBC (Auto) 0-2 (0-2) /hpf U Hyaline Cast (Auto) 0-2 (0-2) /lpf U Epithel Cells (Auto) 0-2 (0-2) /hpf Urine Bacteria (Auto) None Seen (None Seen) Ethyl Alcohol mg/dL 190.0 H (<10.0) mg/dl Medications Administered Current Inpatient Medications Chlordiazepoxide HCl (Chlordiazepoxide Hcl 10 Mg Cap) 10 mg PO Q12H [facility] Stop: 08/25/24 18:01 Chlordiazepoxide HCl (Chlordiazepoxide Hcl 25 Mg Cap) 50 mg PO Q8H [facility] Stop: 08/23/24 16:01 Chlordiazepoxide HCl (Chlordiazepoxide Hcl 25 Mg Cap) 50 mg PO Q6H [facility] Stop: 08/22/24 16:31 Last Admin: 08/22/24 05:05 Dose: 50 mg Chlordiazepoxide HCl (Chlordiazepoxide Hcl 25 Mg Cap) 25 mg PO Q8H [facility] Stop: 08/24/24 16:01 Clonidine HCl (Clonidine Hcl 0.1 Mg Tab) 0.1 mg PO HS [facility] Stop: 09/21/24 20:59 Duloxetine HCl (Duloxetine Hcl 20 Mg Cap) 40 mg PO DAILY [facility] Stop: 09/21/24 08:59 Last Admin: 08/22/24 08:01 Dose: 40 mg Enoxaparin Sodium (Enoxaparin Inj 40 Mg/0.4 Ml Syr) 40 mg SQ PM [facility] Stop: 09/20/24 22:11 Last Admin: 08/21/24 23:08 Dose: 40 mg Thiamine HCl 100 mg/ Syringe 10 mls @ 2 mls/min IV QAM [facility] Stop: 09/21/24 08:59 Last Admin: 08/22/24 08:01 Dose: 2 mls/min Folic Acid 1 mg/ Syringe 10 mls @ 5 mls[facility] [place] [facility]: 09/21/24 08:59 Last Admin: 08/22/24 08:01 Dose: 5 mls/min Magnesium Sulfate/Dextrose (Magnesium Sulfate / D5w) 1 gm in 100 mls @ 50 mls/hr IV Q2H [facility] Stop: 08/22/24 12:44 Lorazepam (Lorazepam 2 Mg/1 Ml Vial) 1 mg IV UD PRN; Protocol PRN Reason: EtOH Withdrawal AWSS Score 6,7 Stop: 09/20/24 22:11 Lorazepam (Lorazepam 2 Mg/1 Ml Vial) 2 mg IV UD PRN; Protocol PRN Reason: EtOH Withdrawal AWSS Score 8,9 Stop: 09/20/24 22:11 Last Admin: 08/22/24 08:05 Dose: 2 mg Lorazepam (Lorazepam 2 Mg/1 Ml Vial) 3 mg IV ONCE PRN; Protocol PRN Reason: EtOH Withdrawal AWSS Score 10+ Multivitamins (Multivitamin Tab) 1 tab PO QAM [facility] Stop: 09/21/24 08:59 Last Admin: 08/22/24 08:01 Dose: 1 tab Nitroglycerin (Nitroglycerin Sl 0.4 Mg/Tab Tab) 0.4 mg SL Q5M PRN PRN Reason: Chest Pain Stop: 09/20/24 22:11
[2024-08-22] MEDS: MAGNESIUM SULFATE / D5W 1 GM/100 ML BAG IV SCH (10:49)
--- NOTE | 2024-08-22 12:53 | Electrocardiogram Report ---
Test Reason : Blood Pressure : */* mmHG Vent. Rate : 78 BPM Atrial Rate : 78 BPM P-R Int : 150 ms QRS Dur : 82 ms QT Int : 396 ms P-R-T Axes : 11 75 58 degrees QTcB Int : 451 ms Normal sinus rhythm with sinus arrhythmia Normal ECG When compared with ECG of 11-Nov-2023 21:28, No significant change was found Confirmed by Ian Mendez ([id number]) on 08/22/2024 12:53:21 PM Referred By: REFERRED SELF Confirmed By: Ian Mendez
[2024-08-22] MEDS: cloNIDine HCL 0.1 MG TAB PO SCH (20:35)
[2024-08-22] MEDS: MAGNESIUM OXIDE 400 MG TAB PO SCH (20:35)
[2024-08-23] MEDS: chlordiazePOXIDE HCl 25 MG CAP PO SCH (00:24)
[2024-08-23 03:54] VITALS: RESP 18
[2024-08-23 06:37] LABS: Hematocrit (blood only) 42.6 % (42.0-52.0); Hemoglobin 15.1 g/dl (14.0-18.0); Mean Corpuscular Hemoglobin 34.4 pg (25.0-34.0); Mean Corpuscular Hgb Conc 35.4 g/dL (32.0-36.0); Mean Platelet Volume 10.3 fL (9.4-12.4); Platelet Count 165 K/uL (130-400); RDW Coefficient of Variation 11.4 % (11.5-14.5); RDW Standard Deviation 40.9 fL (36.4-46.3); Red Blood Count 4.39 M/uL (4.70-6.10); White Blood Count 5.89 K/ul (4.8-10.8)
[2024-08-23 06:59] LABS: Albumin Globulin Ratio 1.4 (0.9-2); Albumin Level 4.1 gm/dl (3.4-5.0); BUN Creatinine Ratio 9.6 (10-20); Bilirubin,Total 0.8 mg/dl (0.2-1.0); Calcium 9.2 mg/dl (8.6-10.3); Creatinine Clr Calc Pharmacy 111.7 ml/min; Magnesium 2.2 mg/dl (1.7-2.4); Phosphorus 3.7 mg/dl (2.5-4.9); Potassium 4.1 mmol/L (3.5-5.1); Total Protein 7.1 gm/dl (6.0-8.3)
--- NOTE | 2024-08-23 16:05 | Hospitalist Progress Note ---
Date of Service August 23, 2024 Assessment & Plan (1) Alcohol withdrawal: Plan: 38-year-old male with past medical history significant for ongoing alcoholism, history of nightmares, depression with anxiety comes because of alcoholism and request for detox. Patient says for last 2 months he was drinking 1.5 L of wine daily and wanted help with detox. Patient states one time in the past had alcohol withdrawal seizures. Currently resting comfortably and hemodynamically stable. Somewhat shaky. Denies any headache. No dizziness. Vision is okay. No earache or runny nose or sore throat. No cough. No fevers. Appetite is okay. No chest pain or shortness of breath. No nausea or vomiting. No abdominal pain. Normal bowel and bladder movements. Denies any blood in stools or black stools. Alcoholism Alcohol withdrawal Drinking 1.5 L once daily History of alcohol withdrawal seizures in the past Alcohol level 190 Request for detox Received IV Valium in ER received IV thiamine and IV folic acid and multivitamins in the ER which will be continued Continue alcohol withdrawal protocol with Librium and IV Ativan as needed Close monitor in telemetry Elevated LFTs Most from alcoholism Follow repeat labs and if trending up will get imaging studies and hepatitis panel History of nightmares Continue home clonidine History of depression and anxiety Continue duloxetine DVT prophylaxis Lovenox Disposition Telemetry Full code Admission and Anticipated Discharge Date Admission Date: August 21, 2024 Subjective Pt seen in follow up of etoh withdrawal Currently laying in bed in NAD No fevers, chills, chest pain, shortness of breath, abd. pain, n/v Discussed w/ RN at the bedside Review of Systems Review of Systems: All systems reviewed & are unremarkable except as noted in Subjective Physical Exam Physical Exam: General- young M, laying in bed in NAD Head- atraumatic Eyes- PERRL. Neck- supple Lungs- clear to auscultation no wheezing or crackles. Heart- regular rate and rhythm; no murmur Abdomen- normal bowel sounds, soft, nontender, no distension. Extremities- no pretibial edema, no erythema seen. Neuro- alert, oriented PERRL, no facial palsy; no dysarthria; moves extremities Results & Data Results & Data Vital Signs (Past 12 Hours) Vital Signs Temp Pulse Pulse Resp BP Pulse Ox O2 Del Method 08/23/24 11:41 36.7 C 97 H 18 121/82 95 Room Air 08/23/24 09:00 99 H 08/23/24 08:20 36.6 C 93 H 18 132/93 97 Room Air Laboratory Results 08/23/24 Range/Units 06:07 WBC 5.89 (4.8-10.8) K/ul RBC 4.39 L (4.70-6.10) M/uL Hgb 15.1 (14.0-18.0) g/dl Hct 42.6 (42.0-52.0) % MCV 97.0 (80.0-100.0) fL MCH 34.4 H (25.0-34.0) pg MCHC 35.4 (32.0-36.0) g/dL RDW Std Deviation 40.9 (36.4-46.3) fL RDW Coeff of [place] 11.4 L (11.5-14.5) % Plt Count 165 (130-400) K/uL MPV 10.3 (9.4-12.4) fL Sodium 140 (136-145) mmol/L Potassium 4.1 (3.5-5.1) mmol/L Chloride 103 (98-107) mmol/L Carbon Dioxide 28 (21-32) mmol/L Anion Gap 9 (3-11) BUN 8 (6-23) mg/dl Creatinine 0.83 (0.6-1.4) mg/dl Est Cr Clr Drug Dosing 111.7 ml/min eGFR 114.17 BUN/Creatinine Ratio 9.6 L (10-20) Glucose 90 (70-99(Fasting)) mg/dl Calcium 9.2 (8.6-10.3) mg/dl Phosphorus 3.7 (2.5-4.9) mg/dl Magnesium 2.2 (1.7-2.4) mg/dl Total Bilirubin 0.8 (0.2-1.0) mg/dl AST 48 H (13-39) U/L ALT 53 H (7-52) U/L Alkaline Phosphatase 76 (34-104) U/L Total Protein 7.1 (6.0-8.3) gm/dl Albumin 4.1 (3.4-5.0) gm/dl Globulin 3.0 (2.5-4.0) gm/dl Albumin/Globulin Ratio 1.4 (0.9-2) Medications Administered Current Inpatient Medications Chlordiazepoxide HCl (Chlordiazepoxide Hcl 10 Mg Cap) 10 mg PO Q12H [facility] Stop: 08/25/24 18:01 Chlordiazepoxide HCl (Chlordiazepoxide Hcl 25 Mg Cap) 25 mg PO Q8H [facility] Stop: 08/24/24 16:01 Clonidine HCl (Clonidine Hcl 0.1 Mg Tab) 0.1 mg PO HS [facility] Stop: 09/21/24 20:59 Last Admin: 08/22/24 20:35 Dose: 0.1 mg Duloxetine HCl (Duloxetine Hcl 20 Mg Cap) 40 mg PO DAILY [facility] Stop: 09/21/24 08:59 Last Admin: 08/23/24 09:28 Dose: 40 mg Enoxaparin Sodium (Enoxaparin Inj 40 Mg/0.4 Ml Syr) 40 mg SQ PM [facility] Stop: 09/20/24 22:11 Last Admin: 08/22/24 20:34 Dose: 40 mg Thiamine HCl 100 mg/ Syringe 10 mls @ 2 mls/min IV QAM [facility] Stop: 09/21/24 08:59 Last Admin: 08/23/24 09:28 Dose: 2 mls/min Folic Acid 1 mg/ Syringe 10 mls @ 5 mls/min IV QAM [facility] Stop: 09/21/24 08:59 Last Admin: 08/23/24 09:28 Dose: 5 mls/min Lorazepam (Lorazepam 2 Mg/1 Ml Vial) 1 mg IV UD PRN; Protocol PRN Reason: EtOH Withdrawal AWSS Score 6,7 Stop: 09/20/24 22:11 Lorazepam (Lorazepam 2 Mg/1 Ml Vial) 2 mg IV UD PRN; Protocol PRN Reason: EtOH Withdrawal AWSS Score 8,9 Stop: 09/20/24 22:11 Last Admin: 08/23/24 12:14 Dose: 2 mg Lorazepam (Lorazepam 2 Mg/1 Ml Vial) 3 mg IV ONCE PRN; Protocol PRN Reason: EtOH Withdrawal AWSS Score 10+ Magnesium Oxide (Magnesium Oxide 400 Mg Tab) 400 mg PO BID [facility] Stop: 09/21/24 20:59 Last Admin: 08/23/24 09:28 Dose: 400 mg Multivitamins (Multivitamin Tab) 1 tab PO QAM [facility] Stop: 09/21/24 08:59 Last Admin: 08/23/24 09:28 Dose: 1 tab Nitroglycerin (Nitroglycerin Sl 0.4 Mg/Tab Tab) 0.4 mg SL Q5M PRN PRN Reason: Chest Pain Stop: 09/20/24 22:11
[2024-08-23] MEDS: NICOTINE 7 MG/24 HR TDSY TD SCH (20:34)
[2024-08-24] MEDS: chlordiazePOXIDE HCl 25 MG CAP PO SCH (00:34)
[2024-08-24 07:02] LABS: Hematocrit (blood only) 41.5 % (42.0-52.0); Hemoglobin 14.7 g/dl (14.0-18.0); Mean Corpuscular Hgb Conc 35.4 g/dL (32.0-36.0); Mean Corpuscular Volume 96.1 fL (80.0-100.0); Mean Platelet Volume 10.6 fL (9.4-12.4); Platelet Count 161 K/uL (130-400); RDW Coefficient of Variation 11.5 % (11.5-14.5); RDW Standard Deviation 40.5 fL (36.4-46.3); Red Blood Count 4.32 M/uL (4.70-6.10); White Blood Count 6.52 K/ul (4.8-10.8)
[2024-08-24 07:25] LABS: BUN Creatinine Ratio 10.3 (10-20); Calcium 9.3 mg/dl (8.6-10.3); Creatinine Clr Calc Pharmacy 106.6 ml/min; Magnesium 2.1 mg/dl (1.7-2.4); Potassium 3.4 mmol/L (3.5-5.1)
[2024-08-24] MEDS: POTASSIUM CHLORIDE CRTAB 20 MEQ TABCR PO STA (09:07)
--- NOTE | 2024-08-24 10:32 | Hospitalist Progress Note ---
Date of Service August 24, 2024 Assessment & Plan (1) Alcohol withdrawal: Plan Pt is a 38-year-old male with past medical history significant for ongoing alcoholism, history of nightmares, depression with anxiety presenting due to alcoholism and request for detox. Patient says for last 2 months he was drinking 1.5 L of wine daily and wanted help with detox. Patient states one time in the past had alcohol withdrawal seizures. Alcoholism Alcohol withdrawal Drinking 1.5 L once daily History of alcohol withdrawal seizures in the past Alcohol level 190 on admission EKG with NSR Request for detox Received IV Valium in ER received IV thiamine and IV folic acid and multivitamins in the ER which will be continued Continue AWSS protocol with Librium and IV Ativan as needed Continue to monitor on telemetry Hypokalemia Replete as needed Elevated LFTs Likely from alcoholism Has been downtrending Consider liver US and hepatitis panel if uptrending Continue to monitor History of nightmares Continue home clonidine History of depression and anxiety Continue duloxetine Holding home hydroxyzine and propranolol Diet: DVT prophylaxis: Lovenox SQ Dispo: Home once medically stable Admission and Anticipated Discharge Date Admission Date: August 21, 2024 Subjective patient was seen initially laying in bed with headphones on and the eye mask in place. After being awakened stated that he was diagnosed with a sleep disorder and has been trying to catch up on sleep. Unable to say whether he is jittery from lack of sleep versus alcohol withdrawal. Notes he does have resources in place Review of Systems Review of Systems: All systems reviewed & are unremarkable except as noted in Subjective Physical Exam Physical Exam: General: Alert, oriented. No acute distress Skin: No noted rashes or bruises Psych: Appropriate mood and affect Neuro: tremulous HEENT: NC/AT CV: RRR Resp: Breath sounds clear bilaterally, no increased effort of breathing Abdomen: Soft, nontender Extremities: No edema in lower extremities bilaterally. Results & Data Results & Data Vital Signs (Past 12 Hours) Vital Signs Temp Pulse Resp BP Pulse Ox O2 Del Method 08/24/24 07:56 36.7 C 84 18 96/67 L 99 Room Air 08/24/24 03:02 36.4 C L 94 H 18 97/60 L 97 Room Air 08/23/24 23:03 36.6 C 90 18 123/86 97 Room Air
[2024-08-25] MEDS: NICOTINE POLACRILEX 2 MG GUM MT PRN (00:35)
[2024-08-25 07:24] LABS: Hematocrit (blood only) 39.3 % (42.0-52.0); Hemoglobin 13.8 g/dl (14.0-18.0); Mean Corpuscular Hemoglobin 34.1 pg (25.0-34.0); Mean Corpuscular Hgb Conc 35.1 g/dL (32.0-36.0); Mean Platelet Volume 11.3 fL (9.4-12.4); Platelet Count 164 K/uL (130-400); RDW Coefficient of Variation 11.5 % (11.5-14.5); RDW Standard Deviation 41.6 fL (36.4-46.3); Red Blood Count 4.05 M/uL (4.70-6.10); White Blood Count 7.58 K/ul (4.8-10.8)
[2024-08-25 07:36] LABS: Albumin Globulin Ratio 1.3 (0.9-2); Albumin Level 4.3 gm/dl (3.4-5.0); BUN Creatinine Ratio 12.6 (10-20); Bilirubin,Total 0.5 mg/dl (0.2-1.0); Calcium 9.6 mg/dl (8.6-10.3); Creatinine Clr Calc Pharmacy 106.6 ml/min; Globulin 3.2 gm/dl (2.5-4.0); Phosphorus 3.8 mg/dl (2.5-4.9); Potassium 3.7 mmol/L (3.5-5.1); Total Protein 7.5 gm/dl (6.0-8.3)
[2024-08-25] MEDS: LORazepam 2 MG/1 ML VIAL IV PRN (10:32)
[2024-08-25 11:29] VITALS: PULSE 68; TEMP 97.9; O2SAT 97
--- NOTE | 2024-08-25 11:35 | Ultrasound Report ---
US liver CLINICAL HISTORY: elevated LFTs COMPARISON STUDY: No previous studies for comparison. FINDINGS: Hepatic echogenicity is diffusely increased. There are no hepatic lesions. There is no bili wesly ductal dilatation. No gallstones are identified. Gallbladder wall thickness is at the upper limit s of normal. This is accentuated by underdistention. Pancreatic body is normal. Head and tail are obs cured. There is no right hydronephrosis. IMPRESSION: 1. No gallstones or biliary ductal dilatation. 2. Increased hepatic echogenicity suggestive of hepatic steatosis. ACT 112: Negative or not required by law. Electronically signed by: César Salamanca M.D. 08/25/2024 11:34 AM
--- NOTE | 2024-08-25 12:04 | Discharge Summary ---
Discharge Summary Date of Service August 25, 2024 Principal Dx & Hospital Course #1 = Principal Diagnosis (1) Alcohol withdrawal: Plan Pt is a 38-year-old male with past medical history significant for ongoing alcoholism, history of nightmares, depression with anxiety presenting due to alcoholism and request for detox. Patient says for last 2 months he was drinking 1.5 L of wine daily and wanted help with detox. Patient states one time in the past had alcohol withdrawal seizures. Alcoholism Alcohol withdrawal Drinking 1.5 L once daily History of alcohol withdrawal seizures in the past Alcohol level 190 on admission EKG with NSR Request for detox Received IV Valium in ER received IV thiamine and IV folic acid and multivitamins in the ER which will be continued Treated with AWSS protocol with Librium and IV Ativan as needed Monitored on telemetry and discharged in stable condition to acute alcohol rehab facility in [place], [place] Close PCP follow up after discharge Hypokalemia Repleted as needed Elevated LFTs Likely from alcoholism AST/ALT in 40s to 70s range Liver US with noted hepatic steatosis PCP follow up for continued monitoring after discharge History of nightmares Continue home clonidine PCP and specialist followup History of depression and anxiety Continue duloxetine Resume home hydroxyzine and propranolol PCP and specialist followup Notes For Next Care Provider Please encourage alcohol cessation Please continue to monitor LFTs Medication Changes From Visit None Admission HPI Per Admitting Provider 38-year-old male with past medical history significant for ongoing alcoholism, history of nightmares, depression with anxiety comes because of alcoholism and request for detox. Patient says for last 2 months he was drinking 1.5 L of wine daily and wanted help with detox. Patient states one time in the past had alcohol withdrawal seizures. Currently resting comfortably and hemodynamically stable. Somewhat shaky. Denies any headache. No dizziness. Vision is okay. No earache or runny nose or sore throat. No cough. No fevers. Appetite is okay. No chest pain or shortness of breath. No nausea or vomiting. No abdominal pain. Normal bowel and bladder movements. Denies any blood in stools or black stools. Past medical history. As mentioned above Past surgical history. Denies any surgeries. Social history. Denies smoking. Heavy alcohol use. Smokes marijuana once in a while. Denies any other drug use. Family history. Mother had breast cancer. Family history significant for anxiety depression and substance abuse as per patient Admission Exam Per Admitting Provider General- Not in distress Head- atraumatic Eyes- PERRL. ENT- oropharynx clear Neck- supple, no JVD. Lungs- clear to auscultation no wheezing or crackles. Heart- regular rate and rhythm; no murmur, no gallop. Abdomen- normal bowel sounds, soft, nontender, no distension. Extremities- no pretibial edema, no erythema seen. Neuro- alert, oriented PERRL, no facial palsy; no dysarthria; moves extremities Discharge Exam General: Alert, orientedx3. No acute distress Skin: No noted rashes or bruises Psych: Appropriate mood and affect at the time of exam Neuro: AAOx3 HEENT: NC/AT CV: RRR Resp: Breath sounds clear bilaterally, no increased effort of breathing Abdomen: Soft, nontender Extremities: No edema in lower extremities bilaterally. Updated Medication List Medication Instructions Recorded Confirmed Type clonidine HCl 0.1 mg tablet 0.1 mg PO HS 08/21/24 08/21/24 History duloxetine 20 mg capsule,delayed 40 mg PO DAILY 08/21/24 08/21/24 History release hydroxyzine HCl 50 mg tablet 50 mg PO DAILY PRN Anxiety 08/21/24 08/21/24 History propranolol 10 mg tablet 10 mg PO BID PRN Anxiety 08/21/24 08/21/24 History Hospital Stay Data Consultations 08/21/24 20:49 ED Decision to Admit Stat Diagnostic Imagining Performed 08/25/24 08:34 US liver Routine Liver Ultrasound 08/25/24 08:34 US liver CLINICAL HISTORY: elevated LFTs COMPARISON STUDY: No previous studies for comparison. FINDINGS: Hepatic echogenicity is diffusely increased. There are no hepatic lesions. There is no biliary ductal dilatation. No gallstones are identified. Gallbladder wall thickness is at the upper limits of normal. This is accentuated by underdistention. Pancreatic body is normal. Head and tail are obscured. There is no right hydronephrosis. IMPRESSION: 1. No gallstones or biliary ductal dilatation. 2. Increased hepatic echogenicity suggestive of hepatic steatosis. ACT 112: Negative or not required by law. Electronically signed by: César Salamanca M.D. 08/25/2024 11:34 AM Discharge Instructions Given to Patient (Per Discharging Provider) You are seen and monitored for alcohol withdrawal symptoms. You are stable for discharge at this time. Congratulations on your decision to be discharged to alcohol rehab. Your liver enzymes were noted to be elevated and you had a liver ultrasound which noted that you have what is called a fatty liver. We recommend that you keep close follow-up with your primary care provider after discharge to continue to monitor your liver enzymes. Please continue with your medications as prescribed. Please keep close follow up with your primary care provider after discharge. Please do not hesitate to come back to the emergency room if your symptoms worsen or return. It was a pleasure taking care of you while you were here. Total Time Total Time Spent Total Time Spent (In Minutes): 60
[2024-08-25 13:54] VITALS: BP 110/74
== END 2024-08-25 14:38 | disposition alcohol treatment (31) | DRG 897 ==
LOC: ED 18:03 → 2E 21:20 → SUATTDRO 21:20 → 2E 22:09